=== PATIENT | female | born 2000 | race Caucasian/White ===

== ENCOUNTER 2019-03-10 15:32 | Emergency (ER) | payer OTHER ==
[~2019-03-10] VITALS: Ht 162.6 cm; Wt 88.2 kg
[2019-03-10 15:33] VITALS: BP 125/75
[2019-03-10 16:34] LABS: HEMATOCRIT 36.5 % (36.0-47.0); HEMOGLOBIN 11.9 g/dl (12.0-15.5); MEAN CORPUSCULAR HEMOGLOBIN 27.1 pg (27.0-33.0); MEAN CORPUSCULAR HGB CONC 32.6 g/dl (32.0-36.5); MEAN CORPUSCULAR VOLUME 83.1 fl (80.0-96.0); PLATELET COUNT, AUTOMATED 232 10^3/uL (150-450); RED BLOOD COUNT 4.39 10^6/uL (4.00-5.40); WHITE BLOOD COUNT 8.1 10^3/uL (4.0-10.0)
== END 2019-03-10 17:29 | disposition home or self-care (01) ==
LOC: M ED 15:32
DX: Z32.02 Encounter for pregnancy test, result negative (principal); N93.8 Other specified abnormal uterine and vaginal bleeding; R11.0 Nausea; F17.200 Nicotine dependence, unspecified, uncomplicated

== ENCOUNTER → 2019-05-30 | Outpatient (REF) | payer OTHER | LOC: M LAB REF 14:55 | PROVIDERS: ATTEND Physician Assistant | DX: J03.90 Acute tonsillitis, unspecified (principal) ==

== ENCOUNTER → 2019-07-07 | Outpatient (REF) | payer OTHER ==
[~2019-07-07] MED LIST: PREN1CHW6 PO
[2019-07-07 17:26] LABS: ALBUMIN 3.7 GM/DL (3.2-5.2); ALT/SGPT 17 U/L (12-78); BILIRUBIN,TOTAL 0.4 MG/DL (0.2-1.0); BLOOD UREA NITROGEN 12 MG/DL (7-18); CALCIUM LEVEL 8.9 MG/DL (8.5-10.1); CARBON DIOXIDE LEVEL 26 MEQ/L (21-32); CHLORIDE LEVEL 107 MEQ/L (98-107); CHOLESTEROL LEVEL 173 MG/DL (<200); CHOLESTEROL RISK RATIO 4.325 (<5); CREATININE FOR GFR 0.53 MG/DL (0.55-1.30); FREE T4 1.19 NG/DL (0.78-1.33); GLUCOSE, FASTING 83 MG/DL (70-100); HCG, SERUM QUANTITATIVE 786 MIU/ML; HDL CHOLESTEROL 40 MG/DL (>40); LDL CHOLESTEROL 116 MG/DL (<100); NON-HDL-C 133 MG/DL; POTASSIUM SERUM 4.1 MEQ/L (3.5-5.1); SODIUM LEVEL 139 MEQ/L (136-145); TOTAL PROTEIN 7.9 GM/DL (6.4-8.2); TRIGLYCERIDES LEVEL 86 MG/DL (<150)
[2019-07-07 17:27] LABS: BASO % 0.5 % (0.0-1.0); EOS # 0.2 10^3/uL (0.0-0.5); EOS % 2.2 % (0.0-3.0); HEMATOCRIT 39.6 % (36.0-47.0); HEMOGLOBIN 12.5 g/dl (12.0-15.5); LYMPH # 1.8 10^3/uL (1.5-5.0); LYMPH % 24.8 % (24.0-44.0); MEAN CORPUSCULAR HEMOGLOBIN 26.6 pg (27.0-33.0); MEAN CORPUSCULAR HGB CONC 31.6 g/dl (32.0-36.5); MEAN CORPUSCULAR VOLUME 84.3 fl (80.0-96.0); MONO # 0.6 10^3/uL (0.0-0.8); MONO % 8.5 % (0.0-5.0); NEUTROPHILS # 4.6 10^3/uL (1.5-8.5); NEUTROPHILS % 63.6 % (36.0-66.0); PLATELET COUNT, AUTOMATED 258 10^3/uL (150-450); TOTAL 25(OH) VITAMIN D 13.1 NG/ML (30.0-100.0); WHITE BLOOD COUNT 7.3 10^3/uL (4.0-10.0)
[2019-07-07 17:45] LABS: HEMOGLOBIN A1c 4.9 %
[2019-07-10 00:10] LABS: Lyme Disease IgG/IgM Antibodie <0.91 ISR (0.00-0.90); Lyme Disease IgM Ab Quantitati <0.80 index (0.00-0.79)
== END ==
LOC: M LAB REF 16:24
PROVIDERS: ATTEND Family Medicine
DX: Z32.01 Encounter for pregnancy test, result positive (principal); Z13.228 Encounter for screening for other metabolic disorders; M25.50 Pain in unspecified joint

== ENCOUNTER 2019-07-09 19:33 | Emergency (ER) | payer OTHER ==
[~2019-07-09] VITALS: Ht 160 cm; Wt 87.2 kg
[2019-07-09] MEDS ORDERED: PREN1CHW6 PO (19:40)
[2019-07-09 20:15] LABS: BASO # 0.1 10^3/uL (0.0-0.2); BASO % 0.5 % (0.0-1.0); EOS # 0.2 10^3/uL (0.0-0.5); EOS % 1.4 % (0.0-3.0); HEMATOCRIT 36.8 % (36.0-47.0); HEMOGLOBIN 12.1 g/dl (12.0-15.5); LYMPH # 2.1 10^3/uL (1.5-5.0); LYMPH % 19.9 % (24.0-44.0); MEAN CORPUSCULAR HEMOGLOBIN 27.1 pg (27.0-33.0); MEAN CORPUSCULAR HGB CONC 32.9 g/dl (32.0-36.5); MEAN CORPUSCULAR VOLUME 82.3 fl (80.0-96.0); MONO # 0.8 10^3/uL (0.0-0.8); MONO % 7.4 % (0.0-5.0); NEUTROPHILS # 7.3 10^3/uL (1.5-8.5); NEUTROPHILS % 70.4 % (36.0-66.0); PLATELET COUNT, AUTOMATED 269 10^3/uL (150-450); RED BLOOD COUNT 4.47 10^6/uL (4.00-5.40); WHITE BLOOD COUNT 10.4 10^3/uL (4.0-10.0)
[2019-07-09 20:59] LABS: ALBUMIN 3.7 GM/DL (3.2-5.2); ALT/SGPT 16 U/L (12-78); BILIRUBIN,DIRECT < 0.1 MG/DL (0.0-0.2); BILIRUBIN,TOTAL 0.1 MG/DL (0.2-1.0); HCG, SERUM QUANTITATIVE 2055 MIU/ML; LIPASE 108 U/L (73-393); TOTAL PROTEIN 7.7 GM/DL (6.4-8.2)
--- NOTE | 2019-07-09 22:07 | REPVR ---
PROCEDURE INFORMATION: Exam: US Duplex Artery or Vein of the Abdominal and/or Reproductive Organs, Limited Ovaries Exam date and time: 07/09/2019 9:05 PM Age: 19 years old Clinical indication: complicated by abdominal or pelvic pain; Lower; First trimester; Gestational age or lmp: 05/30/2019; ; Additional info: 5 wks with pelvic pain TECHNIQUE: Imaging protocol: Real-time duplex ultrasound scan of the arterial or venous flow with gardner scale, color Doppler flow and spectral waveform analysis with image documentation. Limited duplex exam focused on the ovaries. Duplex images required to evaluate for torsion and other vascular conditions. COMPARISON: No relevant prior studies available. FINDINGS: Right adnexa: Normal duplex ultrasound of the right ovary. No torsion. Left adnexa: The left ovary was not visualized due to obscuration by intestinal gas. IMPRESSION: Normal duplex of the right ovary. No evidence for right ovarian torsion. PROCEDURE INFORMATION: Exam: US First Trimester, Transabdominal and US , Transvaginal Exam date and time: 07/09/2019 9:05 PM Age: 19 years old Clinical indication: complicated by abdominal or pelvic pain; Lower; First trimester; Gestational age or lmp: 05/30/2019; ; Additional info: 5 wks with pelvic pain TECHNIQUE: Imaging protocol: Real-time transabdominal obstetrical ultrasound of the maternal pelvis and a first trimester , less than 14 weeks 0 days, with image documentation. Transvaginal imaging was used for better evaluation of the fetus and adnexa. COMPARISON: No relevant prior studies available. FINDINGS: Last menstrual period: 05/30/2019 GESTATION: Gestation: There is a cystic structure in the uterus, which is felt to represent a gestational sac. No pole or yolk sac is visualized. Heart rate: No cardiac activity is visualized. Placenta: No placenta is visualized. Amniotic fluid: Amniotic and coelomic fluid are unremarkable for gestational age. BIOMETRY: Estimated gestational age by US: 5 weeks 2 days Estimated gestational age by LMP: 5 weeks 5 days Mean sac diameter: 0.49 cm Estimated due date by US: 03/08/2020 Estimated due date by LMP: 03/05/2020 MATERNAL: Uterus: The anteverted uterus measures 8.9 cm x 4.2 cm x 6.6 cm. No myometrial mass is noted. Cervix: Unremarkable. Right adnexa: The right ovary measures 4.9 cm x 5 cm x 4.7 cm and contains a 4.6 cm x 4.9 cm x 4.4 cm cyst with simple characteristics. Blood flow is demonstrated to the right ovary. Left adnexa: The left ovary was not visualized due to obscuration by intestinal gas. Intraperitoneal: No intraperitoneal free fluid. IMPRESSION: 1. Evidence for an intrauterine gestational sac with a mean sac diameter of 0.49 cm corresponding to an estimated gestational age of 5 weeks 2 days and estimated due date on 03/08/2020. No embryo identified, which may be secondary to the early nature of the gestation versus an anembryonic . A follow-up ultrasound is suggested in 2 weeks or as clinically indicated along with serial serum beta HCG levels to re-evaluate the . 2. 4.6 cm x 4.9 cm x 4.4 cm cyst with simple characteristics in the right ovary, which can be re-evaluated at the time of the follow-up ultrasound. Electronically signed by: Yonis Jordan On 07/09/2019 22:09:03 PM
[2019-07-09 22:12] VITALS: BP 103/62
== END 2019-07-09 22:36 | disposition home or self-care (01) ==
LOC: M ED 19:33
DX: O26.891 Other specified pregnancy related conditions, first trimester (principal); R10.2 Pelvic and perineal pain; O99.331 Smoking (tobacco) complicating pregnancy, first trimester; O34.81 Maternal care for other abnormalities of pelvic organs, first trimester; N83.291 Other ovarian cyst, right side; Z3A.01 Less than 8 weeks gestation of pregnancy; Z79.899 Other long term (current) drug therapy

== ENCOUNTER 2019-08-13 03:19 | Emergency (ER) | payer OTHER ==
[~2019-08-13] VITALS: Ht 162.6 cm; Wt 86.4 kg
[2019-08-13 05:17] LABS: BASO % 0.4 % (0.0-1.0); EOS # 0.1 10^3/uL (0.0-0.5); EOS % 0.8 % (0.0-3.0); HEMATOCRIT 31.6 % (36.0-47.0); HEMOGLOBIN 10.5 g/dl (12.0-15.5); LYMPH # 1.7 10^3/uL (1.5-5.0); MEAN CORPUSCULAR HEMOGLOBIN 27.3 pg (27.0-33.0); MEAN CORPUSCULAR HGB CONC 33.2 g/dl (32.0-36.5); MEAN CORPUSCULAR VOLUME 82.3 fl (80.0-96.0); MONO # 0.8 10^3/uL (0.0-0.8); MONO % 7.4 % (0.0-5.0); NEUTROPHILS # 8.6 10^3/uL (1.5-8.5); PLATELET COUNT, AUTOMATED 191 10^3/uL (150-450); RED BLOOD COUNT 3.84 10^6/uL (4.00-5.40); WHITE BLOOD COUNT 11.3 10^3/uL (4.0-10.0)
[2019-08-13 05:38] LABS: ALBUMIN 3.1 GM/DL (3.2-5.2); ALT/SGPT 24 U/L (12-78); BILIRUBIN,DIRECT < 0.1 MG/DL (0.0-0.2); BILIRUBIN,TOTAL 0.2 MG/DL (0.2-1.0); LIPASE 50 U/L (73-393); TOTAL PROTEIN 6.9 GM/DL (6.4-8.2)
[2019-08-13] MEDS ORDERED: ACETAMINOPHEN TAB 650MG DOSE (2X325MG) PO ONE (06:00)
[2019-08-13 06:24] LABS: HCG, SERUM QUANTITATIVE 40190 MIU/ML
[2019-08-13 07:21] VITALS: BP 109/64
--- NOTE | 2019-08-13 07:37 | REPVR ---
PROCEDURE INFORMATION: Exam: US First Trimester, Transabdominal Exam date and time: 08/13/2019 6:15 AM Age: 19 years old Clinical indication: complicated by abdominal or pelvic pain; Lower; First trimester; Gestational age or lmp: 10w 0d; ; Additional info: B/l flank, pelvic pain, 10 weeks TECHNIQUE: Imaging protocol: Real-time transabdominal obstetrical ultrasound of the maternal pelvis and a first trimester , less than 14 weeks 0 days, with image documentation. COMPARISON: US OB 07/09/2019 9:06 PM FINDINGS: GESTATION: Gestation: Intrauterine gestation. Yolk sac is unremarkable. Heart rate: 169 bpm Placenta: Unremarkable. No subchorionic bleed. Amniotic fluid: Amniotic and coelomic fluid are normal for gestational age. BIOMETRY: Estimated gestational age: 10 weeks and 0 days based on CRL of 3.1 cm. ARNAV 03/10/2020. MATERNAL: Uterus: Unremarkable. Cervix: Unremarkable. Right adnexa: 5.5 cm anechoic well-defined simple cyst is noted in the right adnexal region. Left adnexa: Unremarkable. Intraperitoneal: No intraperitoneal free fluid. IMPRESSION: Single live intrauterine gestation corresponding to 10 weeks and 0 days. No subchorionic hemorrhage is seen. Follow-up ultrasound at 20 weeks of gestation is recommended for anatomy survey. 5.5 cm anechoic well-defined simple cyst is noted in the right adnexal region. Electronically signed by: Reynold Byrnes On 08/13/2019 07:37:01 AM
== END 2019-08-13 07:23 | disposition home or self-care (01) ==
LOC: M ED 03:19
DX: O26.891 Other specified pregnancy related conditions, first trimester (principal); R10.9 Unspecified abdominal pain; M54.5 Low back pain; O34.81 Maternal care for other abnormalities of pelvic organs, first trimester; N83.8 Other noninflammatory disorders of ovary, fallopian tube and broad ligament; Z3A.10 10 weeks gestation of pregnancy; Z79.899 Other long term (current) drug therapy

== ENCOUNTER 2020-07-20 21:53 | Emergency (ER) | payer MEDICAID, OTHER ==
[~2020-07-20] VITALS: Ht 162.6 cm; Wt 94.5 kg
[2020-07-20 21:54] VITALS: BP 122/64
--- OUTSIDE RECORDS SUMMARY | 2020-07-20 21:59 | CCD ---
Author Author [facility] Organization [facility] Address Unknown Phone Unavailable Care Team Providers Care Manufacturers Service Representative Name Role Phone Romana JAMES MD Unavailable Unavailable Romana JAMES MD Unavailable Unavailable JACOBRomana Dowling MD Unavailable Unavailable JACOBRomana Dowling MD Unavailable Unavailable JACOBRomana Dowling MD Unavailable Unavailable JACOBRomana Dowling MD Unavailable Unavailable JACOBRomana Dowling MD Unavailable Unavailable JACOBRomana Dowling MD Unavailable Unavailable JACOBRomana Dowling MD Unavailable Unavailable JACOBRomana Dowling MD Unavailable Unavailable JACOBRomana Dowling MD Unavailable Unavailable JACOBRomana Dowling MD Unavailable Unavailable JACOBRomana Dowling MD Unavailable Unavailable JACOBRomana Dowling MD Unavailable Unavailable Romana JAMES MD Unavailable Unavailable JACOBRomana Dowling MD Unavailable Unavailable JACOBRomana Dowling MD Unavailable Unavailable JACOBRomana Dowling MD Unavailable Unavailable JACOBRomana Dowling MD Unavailable Unavailable JACOBRomana Dowling MD Unavailable Unavailable JACOBRomana Dowling MD Unavailable Unavailable JACOBRomana Dowling MD Unavailable Unavailable JACOBRomana Dowling MD Unavailable Unavailable JACOBRomana Dowling MD Unavailable Unavailable JACOBRomana MD Unavailable Unavailable JACOBRomana Dowling MD Unavailable Unavailable JACOB, F HERVE MD Unavailable Unavailable Romana JAMES MD Unavailable Unavailable Pacheco SIMS MD Unavailable Unavailable Pacheco SIMS MD Unavailable Unavailable Pacheco SIMS MD Unavailable Unavailable Pacheco SIMS MD Unavailable Unavailable Pacheco SIMS MD Unavailable Unavailable Pacheco SIMS MD Unavailable Unavailable Pacheco SIMS MD Unavailable Unavailable Pacheco SIMS MD Unavailable Unavailable Pacheco SIMS MD Unavailable Unavailable Pacheco SIMS MD Unavailable Unavailable Pacheco SIMS MD Unavailable Unavailable Pacheco SIMS MD Unavailable Unavailable Pacheco SIMS MD Unavailable Unavailable Pacheco SIMS MD Unavailable Unavailable Pacheco SIMS MD Unavailable Unavailable Pacheco SIMS MD Unavailable Unavailable Pacheco SIMS MD Unavailable Unavailable Pacheco SIMS MD Unavailable Unavailable Pacheco SIMS MD Unavailable Unavailable Pacheco SIMS MD Unavailable Unavailable Pacheco SIMS MD Unavailable Unavailable Pacheco SIMS MD Unavailable Unavailable Pacheco SIMS MD Unavailable Unavailable Pacheco SIMS MD Unavailable Unavailable Pacheco SIMS MD Unavailable Unavailable Pacheco SIMS MD Unavailable Unavailable Pacheco SIMS MD Unavailable Unavailable Koko CHAN MD Unavailable Unavailable Koko CHAN MD Unavailable Unavailable Koko CHAN MD Unavailable Unavailable Koko CHAN MD Unavailable Unavailable Koko CHAN MD Unavailable Unavailable Koko CHAN MD Unavailable Unavailable Koko CHAN MD Unavailable Unavailable Koko CHAN MD Unavailable Unavailable Koko CHAN MD Unavailable Unavailable Koko CHAN MD Unavailable Unavailable Koko CHAN MD Unavailable Unavailable Koko CHAN MD Unavailable Unavailable Koko CHAN MD Unavailable Unavailable Koko CHAN MD Unavailable Unavailable Koko CHAN MD Unavailable Unavailable Koko CHAN MD Unavailable Unavailable Koko CHAN MD Unavailable Unavailable Koko CHAN MD Unavailable Unavailable Koko CHAN MD Unavailable Unavailable Koko CHAN MD Unavailable Unavailable Koko CHAN MD Unavailable Unavailable Koko CHAN MD Unavailable Unavailable Koko CHAN MD Unavailable Unavailable Koko CHAN MD Unavailable Unavailable Koko CHAN MD Unavailable Unavailable Koko CHAN MD Unavailable Unavailable Koko CHAN MD Unavailable Unavailable Koko CHAN MD Unavailable Unavailable Koko CHAN MD Unavailable Unavailable Koko CHAN MD Unavailable Unavailable Koko CHAN MD Unavailable Unavailable Koko CHAN MD Unavailable Unavailable Koko CHAN MD Unavailable Unavailable Koko CHAN MD Unavailable Unavailable SUZETTEKoko GARCIA MD Unavailable Unavailable Koko CHAN MD Unavailable Unavailable Koko CHAN MD Unavailable Unavailable Koko CHAN MD Unavailable Unavailable Koko CHAN MD Unavailable Unavailable Koko CHAN MD Unavailable Unavailable Koko CHAN MD Unavailable Unavailable Koko CHAN MD Unavailable Unavailable Koko CHAN MD Unavailable Unavailable Koko CHAN MD Unavailable Unavailable Koko CHAN MD Unavailable Unavailable Koko CHAN MD Unavailable Unavailable Koko CHAN MD Unavailable Unavailable Koko CHAN MD Unavailable Unavailable Koko CHAN MD Unavailable Unavailable Koko CHAN MD Unavailable Unavailable Koko CHAN MD Unavailable Unavailable Koko CHAN MD Unavailable Unavailable Koko CHAN MD Unavailable Unavailable Koko CHAN MD Unavailable Unavailable Koko CHAN MD Unavailable Unavailable Koko CHAN MD Unavailable Unavailable Koko CHAN MD Unavailable Unavailable Koko CHAN MD Unavailable Unavailable Koko CHAN MD Unavailable Unavailable Koko CHAN MD Unavailable Unavailable Koko CHAN MD Unavailable Unavailable Koko CHAN MD Unavailable Unavailable Koko CHAN MD Unavailable Unavailable Koko CHAN MD Unavailable Unavailable Koko CHAN MD Unavailable Unavailable Koko CHAN MD Unavailable Unavailable Koko CHAN MD Unavailable Unavailable Koko CHAN MD Unavailable Unavailable Koko CHAN MD Unavailable Unavailable Koko CHAN MD Unavailable Unavailable Koko CHAN MD Unavailable Unavailable Koko CHAN MD Unavailable Unavailable Koko CHAN MD Unavailable Unavailable Koko CHAN MD Unavailable Unavailable Koko CHAN MD Unavailable Unavailable Koko CHAN MD Unavailable Unavailable SUZETTE, Koko MUKHERJEE MD Unavailable Unavailable SUZETTE, Koko MUKHERJEE MD Unavailable Unavailable SUZETTE, Koko MUKHERJEE MD Unavailable Unavailable SUZETTE, Koko MUKHERJEE MD Unavailable Unavailable SUZETTE, Koko MUKHERJEE MD Unavailable Unavailable SUZETTE, Koko MUKHERJEE MD Unavailable Unavailable SUZETTE, Koko MUKHERJEE MD Unavailable Unavailable RING, K LAURA PA Unavailable Unavailable RING, K LAURA PA Unavailable Unavailable RING, K LAURA PA Unavailable Unavailable RING, K LAURA PA Unavailable Unavailable RING, K LAURA PA Unavailable Unavailable RING, K LAURA PA Unavailable Unavailable RING, K LAURA PA Unavailable Unavailable RING, K LAURA PA Unavailable Unavailable RING, K LAURA PA Unavailable Unavailable RING, K LAURA PA Unavailable Unavailable RING, K LAURA PA Unavailable Unavailable RING, K LAURA PA Unavailable Unavailable RING, K LAURA PA Unavailable Unavailable RING, K LAURA PA Unavailable Unavailable RING, K LAURA PA Unavailable Unavailable RING, K LAURA PA Unavailable Unavailable RING, K LAURA PA Unavailable Unavailable RING, K LAURA PA Unavailable Unavailable RING, K LAURA PA Unavailable Unavailable RING, K LAURA PA Unavailable Unavailable RING, K LAURA PA Unavailable Unavailable Beto, L Mathew CNM Unavailable Unavailable Beto, L Mathew CNM Unavailable Unavailable Beto, L Mathew CNM Unavailable Unavailable Beto, L Mathew CNM Unavailable Unavailable Beto, L Mathew CNM Unavailable Unavailable Beto, L Mathew CNM Unavailable Unavailable Beto, L Mathew CNM Unavailable Unavailable Beto, L Mathew CNM Unavailable Unavailable Beto, L Mathew CNM Unavailable Unavailable Beto, L Mathew CNM Unavailable Unavailable Beto, L Mathew CNM Unavailable Unavailable Beto, L Mathew CNM Unavailable Unavailable Beto, L Mathew CNM Unavailable Unavailable Beto, L Mathew CNM Unavailable Unavailable Beto, L Mathew CNM Unavailable Unavailable Beto, L Mathew CNM Unavailable Unavailable Beto, L Mathew CNM Unavailable Unavailable Beto, L Mathew CNM Unavailable Unavailable Beto, L Mathew CNM Unavailable Unavailable Beto, L Mathew CNM Unavailable Unavailable Beto, L Mathew CNM Unavailable Unavailable Beto, L Mathew CNM Unavailable Unavailable Beto, L Mathew CNM Unavailable Unavailable Bteo, L Mathew CNM Unavailable Unavailable Beto, L Mathew CNM Unavailable Unavailable Beto, L Mathew CNM Unavailable Unavailable Beto, L Mathew CNM Unavailable Unavailable Beto, L Mathew CNM Unavailable Unavailable Re-disclosure Warning The records that you are about to access may contain information from federally-assisted alcohol or drug abuse programs. If such information is present, then the following federally mandated warning applies: This information has been disclosed to you from records protected by federal confidentiality rules (42 CFR part 2). The federal rules prohibit you from making any further disclosure of this information unless further disclosure is expressly permitted by the written consent of the person to whom it pertains or as otherwise permitted by 42 CFR part 2. A general authorization for the release of medical or other information is NOT sufficient for this purpose. The Federal rules restrict any use of the information to criminally investigate or prosecute any alcohol or drug abuse patient.The records that you are about to access may contain highly sensitive health information, the redisclosure of which is protected by Article 27-F of the [facility] Public Health law. If you continue you may have access to information: Regarding HIV / AIDS; Provided by facilities licensed or operated by the [facility] Office of Mental Health; or Provided by the [facility] Office for People With Developmental Disabilities. If such information is present, then the following [facility] mandated warning applies: This information has been disclosed to you from confidential records which are protected by state law. State law prohibits you from making any further disclosure of this information without the specific written consent of the person to whom it pertains, or as otherwise permitted by law. Any unauthorized further disclosure in violation of state law may result in a fine or long-term sentence or both. A general authorization for the release of medical or other information is NOT sufficient authorization for further disc losure. Allergies and Adverse Reactions Type Description Substance Reaction Status Data Source(s ) No Known Allergies No Known Allergies [facility] Encounters Encounter Providers Location Date Indications Data Source(s ) [facility] 03/04/2020 11:05:00 PM EDT - 03/07/2020 01:20:00 PM EDT [facility] Patient discharged. Outpatient Referrer: Mathew Pérez CNM 11/21/2019 03:08:00 P M EDT [facility] Outpatient Referrer: Mathew Pérez CNM 11/21/2019 03:08:00 P M EDT [facility] Outpatient Referrer: Mathew THOMSON 11/21/2019 03:05:00 P M EDT [facility] Outpatient Referrer: Mathew THOMSON 11/21/2019 03:03:00 P M EDT [facility] Outpatient Referrer: Mathew THOMSON 11/10/2019 03:39:00 P M EDT [facility] Outpatient 11/10/2019 03:37:[address] [facility] Outpatient Attender: RONNIE SIMS MD 01:27:00 PM EDT - 10/18/2019 01:27:00 PM EDT [facility] Outpatient Attender: LONNY CHAN MD 10/17/2019 04:59:01 P M EDT [facility] Outpatient Attender: Mathew Pérez CNMAttender: HERVE Dowling MD 09/20/2019 01:33:00 PM EDT - 09/20/2019 01:33:00 PM EDT [facility] Outpatient Attender: Mathew THOMSON 2019 12:49:00 PM EDT - 08/23/2019 12:49:00 PM EDT [facility] Outpatient 08/23/2019 09:55:[address] [facility] Outpatient 07/19/2019 03:19:[address] [facility] Outpatient Attender: LONNY CHAN MD 07/19/2019 01:29:[address] [facility] Outpatient Attender: LONNY CHAN MD 07/19/2019 01:29:[address] [facility] Outpatient Attender: LONNY CHAN MD 07/12/2019 10:43:[address] [facility] Outpatient Attender: LONNY CHAN MD 07/08/2019 03:42:[address] [facility] Outpatient Attender: LONNY CHAN MD 07/08/2019 11:46:[address] [facility] Outpatient Attender: LONNY CHAN MD 07/07/2019 03:09:[address] [facility] Outpatient Attender: LONNY CHAN MD 07/07/2019 03:09:[address] [facility] Outpatient Attender: LONNY CHAN MD 07/07/2019 11:20:[address] [facility] Outpatient Attender: LONNY CHAN MD 07/06/2019 02:56:00 P [facility] Outpatient Attender: LONNY CHAN MD 07/06/2019 01:04:[address] [facility] Outpatient Attender: LONNY CHAN MD 07/06/2019 12:35:[address] [facility] Outpatient Attender: LONNY CHAN MD 07/06/2019 12:34:[address] [facility] Outpatient Attender: LONNY CHAN MD 07/06/2019 11:52:[address] [facility] Outpatient Attender: LONNY CHAN MD 06/06/2019 06:00:[address] [facility] Outpatient Attender: LONNY CHAN MD 06/06/2019 05:59:[address] [facility] Outpatient Attender: LONNY CHAN MD 06/03/2019 05:20:[address] [facility] Outpatient Attender: LONNY CHAN MD 06/03/2019 05:19:[address] [facility] Outpatient Attender: LONNY CHAN MD 06/03/2019 03:54:[address] [facility] Outpatient Attender: LONNY CHAN MD 06/03/2019 03:27:[address] [facility] Outpatient Attender: LONNY CHAN MD 06/03/2019 03:25:[address] [facility] Outpatient Attender: LONNY CHAN MD 05/31/2019 09:16:[address] [facility] Outpatient Attender: LONNY CHAN MD 05/31/2019 09:14:[address] [facility] Outpatient Attender: LONNY CHAN MD 05/31/2019 09:13:[address] [facility] Outpatient Attender: LONNY CHAN MD 05/30/2019 01:45:[address] [facility] Outpatient Attender: LAURA Bentley [facility] 05/30/2019 11:00:00 AM EST [facility] ([facility], [facility]) Emergency 11/27/2018 02:57:51 PM EDT - 11/27/2018 05:26:00 PM EDT chest tightness, [facility] chest tightness, Medications Medication Brand Name Start Date Product Form Dose Route Admi nistrative Instructions Pharmacy Instructions Status Indications Reaction Description Data Source(s) 0.25-35 mg-mcg 07/03/2020 12:00:00 AM EST tablet 28 TAKE ONE TABLET BY MOUTH EVERY DAY TAKE ONE TABLET BY MOUTH EVERY DAY SOLD: 07/03/2020 [facility] 0.25-35 mg-mcg 06/06/2020 12:00:00 AM EST tablet 28 TAKE ONE TABLET BY MOUTH ONCE DAILY TAKE ONE TABLET BY MOUTH ONCE DAILY SOLD: 06/06/2020 [facility] Azithromycin 16.7 MG/ML Oral Suspension [Zithromax] Zithroma x 09/06/2019 12:00:00 AM EDT completed [facility] ([facility]) Insurance Providers Payer name Policy type / Coverage type Policy ID Covered republican ID Covered republican's relationship to panchal Policy Panchal Plan Information [facility] COMMUNITY PLAN [facility] [id number] SP [id number] [facility] COMMUNITY PLAN XIX -I/P [id number] 18 [id number] [facility] COMMUNITY PLAN XIX [id number] MEDICAID -O/P EMERGENCY ROOM [id number] [employer](MCAID) O [id number] S [id number] [facility] COMMUNTY PLAN [id number] United Healthcare Essential Plan P [id number] S [id number] [facility] [id number] 18 [id number] [facility] COMMUNITY PLAN [facility] [id number] SP [id number] United [employer] Essential Plan P [id number] S [id number] United [employer] Essential Plan P [id number] S [id number] Self Pay P UNAVAILABLE S [place] BLE [place] [facility] ESSENTIALS PLUS 1 & 2 [id number] [employer]ARE [id number] SP [id number] UNITED HE[employer]ARE [id number] [facility] Commerical [id number] UNITED HE[employer]CARE [id number] [facility] HE[facility] PLAN O [id number] 01 [id number] SELF PAY Self Pay [id number] CHILD HEALTH PLUS Medicaid [id number] Problems, Conditions, and Diagnoses Code Display Name Description Problem Type Effective Dates Data Source(s) V72.42 - blood test confirms - blood test c onfirms 07/08/2019 11:45:02 AM [facility] V22.2 Urine test positive Urine test pos itive 07/06/2019 01:03:44 PM [facility] J35.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, unspecified Chronic disease of tonsils AND/OR adenoids 06/06/2019 05:58:09 AM [facility] 620.2 Unspecified ovarian cyst, unspecified si de Unspecified ovarian cyst, unspecified side 06/06/2019 05:58:09 AM [facility] [id number] Unspecified asthma with status asthmatic us Unspecified asthma with status asthmaticus 06/06/2019 05:58:09 AM [facility] F17.200 Nicotine dependence, unspecified, uncomplicated Nicoti ne dependence 06/06/2019 05:58:09 AM [facility] E55.9 Vitamin D deficiency, unspecified Vitamin D deficiency , unspecified 06/06/2019 05:58:09 AM [facility] [id number] Pain in unspecified joint Pain in unspecified joint 06/06/2019 05:58:09 AM [facility] Z13.228 Encounter for screening for other metabo lic disorders Encounter for screening for other metabolic disorders 06/06/2019 05:58:09 AM [facility] [id number] Attention-deficit hyperactivity disorder , unspecified type Attention- deficit hyperactivity disorder, unspecified type 06/06/2019 05:58:09 AM [facility] F41.9 Anxiety disorder, unspecified Anxiety disorder, unspec ified 06/06/2019 05:58:09 AM [facility] O770 Labor and delivery complicated by meconi um in amniotic fluid Labor and delivery complicated by meconium in amniotic fluid [facility] of 40 weeks gestation of Diagnosis 03/04/2020 11:05:00 PM EDT [facility] E669 Obesity, unspecified Obesity, unspecified Diagnosis [id number] Obesity complicating childbirth Obesity complica ting childbirth Diagnosis 03/04/2020 11:05:00 PM [facility] F419 Anxiety disorder, unspecified Anxiety disorder, unspec ified Diagnosis 03/04/2020 11:05:00 PM [facility] O639 Long labor, unspecified Long labor, unspecified Diagno sis 03/04/2020 11:05:00 PM [facility] Z370 Single live Single live Diagnosis 03/04/2020 11:05:00 PM [facility] [id number] Other mental disorders complicating chil dbirth Other mental disorders complicating childbirth Diagnosis 03/04/2020 11:05:00 PM [facility] [id number] Other mental disorders complicating preg nelda, third trimester Other mental disorders complicating , third trimester Diagnosis 03/04/2020 11:05:00 PM [facility] Z3A20 20 weeks gestation of 20 weeks gestation of Diagnosis 10/18/2019 01:27:00 PM [facility] Z3402 Encounter for supervision of normal firs t , second trimester Encounter for supervision of normal first , second trimester Diagnosis 10/18/2019 01:27:00 PM [facility] Z3A16 16 weeks gestation of 16 weeks gestation of Diagnosis 09/20/2019 01:33:00 PM [facility] Z3482 Encounter for supervision of other mary beth l , second trimester Encounter for supervision of other normal , second trimester Diagnosis 09/20/2019 01:33:00 PM [facility] Z3A12 12 weeks gestation of 12 weeks gestation of Diagnosis 08/23/2019 12:49:00 PM [facility] Z3481 Encounter for supervision of other mary beth l , first trimester Encounter for supervision of other normal , first trimester Diagnosis 08/23/2019 12:49:00 PM [facility] Surgeries/Procedures Procedure Description Date Indications Data Source(s) Introduction of Anesthetic Agent into Spinal Canal, Pe rcutaneous Approach Introduction of Anesthetic Agent into Spinal Canal, Percutaneous Approac 03/05/2020 12:00:00 AM [facility] Delivery of Products of Conception, External Approach Delivery of Products of Conception, External Approach 03/05/2020 12:00:00 AM [facility] Introduction of Electrolytic and Water B alance Substance into Peripheral Vein, Percutaneous Approach Introduction of Electrolytic and Water B alance Substance into Peripheral Vein, Percutaneous Approach 03/04/2020 12:00:00 AM EDT [facility] Monitoring of Products of Conception, Ca rdiac Electrical Activity, External Approach Monitoring of Products of Conception, Ca rdiac Electrical Activity, External Approach 03/04/2020 12:00:00 AM EDT [facility] Antepartum New Patient Initial Visit 08/23/2019 12:00: 00 AM EDT [facility] ([facility]) Results ID Date Data Source [id number] 03/06/2020 07:20:00 AM T [facility] Name Value Range Interpretation Code Description Data Ashley rce(s) Supporting Document(s) CBC W/AUTOMATED DIFF [facility] COMPLETE BLOOD COUNT Leukocytes [#/volume] in Blood by Automated count 11.7 10^3/uL 4.2 - 11.0 H [facility] Erythrocytes [#/volume] in Blood by Automated count 4.04 10^6/uL 4. 20 - 5.40 L [facility] Hemoglobin [Mass/volume] in Blood 11.0 g/dL 12.0 - 16.0 L [facility] Hematocrit [Volume Fraction] of Blood by Automated count 33.2 % 3 7.0 - 47.0 L [facility] Erythrocyte mean corpuscular volume [Entitic volume] by Auto mated count 82.2 fL 81.0 - 101 [facility] Erythrocyte mean corpuscular hemoglobin [Entitic mass] by Automated count 27.2 pg 27.0 - 34.0 [facility] Erythrocyte mean corpuscular hemoglobin concentration [Mass/volume] by Automated count 33.1 g/dL 31.0 - 36.0 [facility] Erythrocyte distribution width [Ratio] by Automated count 14.0 % 11.5 - 14.5 [facility] Platelets [#/volume] in Blood by Automated count 174 10^3/uL 150 - 45 0 [facility] Platelet mean volume [Entitic volume] in Blood by Automated count 9.1 fL 7.4 - 10.4 [facility] Neutrophils/100 leukocytes in Blood by Automated count 72.2 % 37. 0 - 80.0 [facility] Lymphocytes/100 leukocytes in Blood by Manual count 17.0 % 25.0 - 40.0 L [facility] Monocytes/100 leukocytes in Blood by Automated count 9.8 % 3.0 - 8.0 H [facility] Eosinophils/100 leukocytes in Blood by Automated count 0.5 % 0.0 - 7.0 [facility] Basophils/100 leukocytes in Blood by Automated count 0.2 % 0.0 - 2.5 [facility] %IG 0.3 % 0.0 - 0.0 H [facility] Hospit al %NRBC 0.0 % 0.0 - 0.[address] [facility] al Neutrophils [#/volume] in Blood by Automated count 8.43 10^3/uL 2.00 - 6.90 H [facility] Lymphocytes [#/volume] in Blood by Automated count 1.98 10^3/uL 0.60 - 3.40 [facility] Monocytes [#/volume] in Blood by Automated count 1.14 10^3/uL 0.00 - 0.90 H [facility] Eosinophils [#/volume] in Blood by Automated count 0.06 10^3/uL 0.00 - 0.70 [facility] Basophils [#/volume] in Blood by Automated count 0.02 10^3/uL 0.00 - 0.20 [facility] #IG 0.04 10^3/uL 0.00 - 0.10 [facility] H ospital #NRBC 0.00 10^3/uL 0.00 - 0.00 [facility]ital MANUAL DIFF SEE BELOW [facility] ital Segmented neutrophils/100 leukocytes in Blood by Manual count 77 % 37 - 80 [facility] %LYMPH 17 % 25 - 40 L [facility] %MONO 6 % 3 - 8 [facility]PH NOT INDICATED [facility] spital ID Date Data Source [id number] 03/08/2020 03:32:00 PM EDT [facility] Name Value Range Interpretation Code Description Data Ashley rce(s) Supporting Document(s) CULTURE URINE [facility] spital _CULTURE URINE_$$[id number]$$[id number]$$[id number]$$[id number]$$[id number]$$[id number]$$[id number]$$[id number]$$[id number]$$ [id number]$$[id number]$$[id number]$$[id number]$$[id number]$$[id number]$$[id number]$$[id number]$$[id number]$$[id number]$$ [id number]$$[id number]$$[id number]$$[id number]$$[id number]$$[id number]$$[id number]$$[id number] -- Continued on next page --Patient: MIGUEL GODDARD N Order: [id number] Page 2Culture: CULTURE URINE Status: Final ==== -- Continued on next page --Patient: MIGUEL GODDARD N Order: [id number] Page 2Culture: CULTURE URINE Status: Prelim =====$$[id number]$$[id number] DATE/TIME: 03/08/2020 15:06Culture: CULTURE URINE Status: FinalUrine Culture,Comprehensive: Q0Ylaej urogenital flora10,000-25,000 colony forming units per mL Previous result entered on 03/07/2020 03:30 ET Specimen has been received and testing has been initiated.P1 Test performed by: [facility] Neal ROWLAND #: [id number] [address] [place] [address] [id number] [facility] [id number] Director : Favian Pfeiffer MD NPI #:Pharmacist Per Diem : 03/07/20.0620.XMT.SENT REF 03/08/20.1532.XMT.SENT REF 03/08/20.1532.DW .to PARUL via fax ID Date Data Source [id number] 03/07/2020 06:11:00 AM EDT [facility] Name Value Range Interpretation Code Description Data Ashley rce(s) Supporting Document(s) SOURCE: Clean Catch [facility] ital Chlamydia trachomatis rRNA [Presence] in Unspecified specimen by Probe and target amplification method Negative Negative [facility] Neisseria gonorrhoeae rRNA [Presence] in Unspecified specimen by Probe and target amplification method Negative Negative [facility] ID Date Data Source [id number] 03/05/2020 01:13:00 AM EDT [facility] Name Value Range Interpretation Code Description Data Sahley rce(s) Supporting Document(s) ABO group [Type] in Blood A [facility] Rh [Type] in Blood POSITIVE [facility] AB SCREEN NEGATIVE NORMAL: NEGATIVE [facility] { ABO/RH REENTER A POSITIVE{ AB SCREEN RE-ENTER NEGATIVE ID Date Data Source [id number] 03/05/2020 12:28:00 AM EDT [facility] Name Value Range Interpretation Code Description Data Ashley rce(s) Supporting Document(s) CBC W/AUTOMATED DIFF [facility] COMPLETE BLOOD COUNT Leukocytes [#/volume] in Blood by Automated count 11.8 10^3/uL 4.2 - 11.0 H [facility] Erythrocytes [#/volume] in Blood by Automated count 4.77 10^6/uL 4. 20 - 5.40 [facility] Hemoglobin [Mass/volume] in Blood 13.0 g/dL 12.0 - 16.0 [facility] Hematocrit [Volume Fraction] of Blood by Automated count 38.3 % 3 7.0 - 47.0 [facility] Erythrocyte mean corpuscular volume [Entitic volume] by Auto mated count 80.3 fL 81.0 - 101 L [facility] Erythrocyte mean corpuscular hemoglobin [Entitic mass] by Automated count 27.3 pg 27.0 - 34.0 [facility] Erythrocyte mean corpuscular hemoglobin concentration [Mass/volume] by Automated count 33.9 g/dL 31.0 - 36.0 [facility] Erythrocyte distribution width [Ratio] by Automated count 13.5 % 11.5 - 14.5 [facility] Platelets [#/volume] in Blood by Automated count 227 10^3/uL 150 - 45 0 [facility] Platelet mean volume [Entitic volume] in Blood by Automated count 9.9 fL 7.4 - 10.4 [facility] Neutrophils/100 leukocytes in Blood by Automated count 82.9 % 37. 0 - 80.0 H [facility] Lymphocytes/100 leukocytes in Blood by Manual count 10.7 % 25.0 - 40.0 L [facility] Monocytes/100 leukocytes in Blood by Automated count 5.7 % 3.0 - 8.0 [facility] Eosinophils/100 leukocytes in Blood by Automated count 0.1 % 0.0 - 7.0 [facility] Basophils/100 leukocytes in Blood by Automated count 0.2 % 0.0 - 2.5 [facility] %IG 0.4 % 0.0 - 0.0 [facility] %NRBC 0.0 % 0.0 - 0.[address] [facility] al Neutrophils [#/volume] in Blood by Automated count 9.77 10^3/uL 2.00 - 6.90 H [facility] Lymphocytes [#/volume] in Blood by Automated count 1.26 10^3/uL 0.60 - 3.40 [facility] Monocytes [#/volume] in Blood by Automated count 0.67 10^3/uL 0.00 - 0.90 [facility] Eosinophils [#/volume] in Blood by Automated count 0.01 10^3/uL 0.00 - 0.70 [facility] Basophils [#/volume] in Blood by Automated count 0.02 10^3/uL 0.00 - 0.20 [facility] #IG 0.05 10^3/uL 0.00 - 0.10 [facility] #NRBC 0.00 10^3/uL 0.00 - 0.00 [facility] MANUAL DIFF NOT INDICATED [facility] RBC MORPH NOT INDICATED [facility] spital ID Date Data Source [id number] 03/05/2020 12:27:00 AM EDT [facility] Name Value Range Interpretation Code Description Data Ashley rce(s) Supporting Document(s) BASIC METABOLIC PANEL [facility] BASIC METABOLIC PANEL Sodium [Moles/volume] in Serum or Plasma 136 mEq/L 134 - 153 [facility] Potassium [Moles/volume] in Serum or Plasma 4.1 mEq/L 3.6 - 5.0 [facility] Chloride [Moles/volume] in Serum or Plasma 101 mEq/L 98 - 107 [facility] Carbon dioxide, total [Moles/volume] in Serum or Plasma 18 MEQ/L 22 - 30 L [facility] Glucose [Mass/volume] in Serum or Plasma 97 MG/DL 65 - 110 [facility] BUN 10 MG/DL 7 - [address] [facility] al Creatinine [Mass/volume] in Serum or Plasma 0.5 MG/DL 0.7 - 1.5 L [facility] BUN/CREAT 20 8 - 27 [facility] Calcium [Mass/volume] in Serum or Plasma 9.5 MG/DL 8.4 - 10.2 [facility] Anion gap 3 in Serum or Plasma 17.0 mmol/L 8.0 - 16.0 H [facility] AGE [address] [facility] al AFR AMER GFR >60 mL/min [facility] spital NON-AA GFR >60 mL/min [facility] ital Male GFR Inter prentation 20-49 yrs >60 mL/min Normal 50-59 yrs >56 mL/min Normal 60-69 yrs >49 mL/min Normal 70-79yrs >42 mL/min Normal 80 and above >35 mL/min Normal Female GFR Interpretation 20-39 yrs >60 mL/min Normal 40-49 yrs >58 mL/min Normal 50-59 yrs >51 mL/min Normal 60-69 yrs >45 mL/min Normal 70-79 yrs >39 mL/min Normal 80 and above >32 mL/min Normal ID Date Data Source [id number] 03/05/2020 12:25:00 AM EDT [facility] Name Value Range Interpretation Code Description Data Ashley rce(s) Supporting Document(s) URINALYSIS [facility] URINALYSIS SOURCE [facility] COLOR Dk Yellow NORMAL: Yellow [facility] CLARITY Clear NORMAL: Clear [facility] Specific gravity of Urine by Test strip 1.010 1.001 - 1.030 [facility] pH 7 5 - [address] [facility] al Glucose [Mass/volume] in Urine by Test strip Negative NORMAL: Negat [facility] Bilirubin.total [Presence] in Urine by Test strip Negative NORMAL: Negative [facility] Ketones [Presence] in Urine by Test strip 150 NORMAL: Negative [facility] Protein [Mass/volume] in Urine by Test strip 15 NORMAL: Negat [facility] Nitrite [Presence] in Urine by Test strip Negative NORMAL: Negative [facility] BLOOD 250 NORMAL: Negative [facility] Leukocyte esterase [Presence] in Urine by Test strip 100 MARY BETH L: Negative [facility] Urobilinogen [Mass/volume] in Urine by Test strip NOR less shireen n 1.0 mg/dL [facility] MICROSCOPIC See Below [facility] ital WBC 3 - 5 NORMAL: NONE SEEN [facility] Erythrocytes [#/volume] in Urine by Test strip 0 - 1 NORMAL: NON E SEEN [facility] EPITHELIAL FEW NORMAL: NONE SEEN [facility] Bacteria [Presence] in Urine sediment by Light microscopy Tr catrachita NORMAL: NONE SEEN [facility] Mucus [Presence] in Urine sediment by Light microscopy 1+ NOR MAL: NONE SEEN [facility] ID Date Data Source [id number] 03/05/2020 12:25:00 AM EDT [facility] Name Value Range Interpretation Code Description Data Ashley rce(s) Supporting Document(s) Prothrombin time (PT) 13.9 SECONDS 11.0 - 15.5 [facility] INR in Platelet poor plasma by Coagulation assay 1.06 0.93 - 1. 23 [facility] aPTT in Blood by Coagulation assay 29.8 SECONDS 24.8 - 36.7 [facility] \\BLDo\\INR INTERPRETATION\\BLDx\\ Therapeutic range for Coumadin and related oral anticoagulants. - International Normalized Ratio (INR): 2.0 - 3.0 for Venous Thrombosis, Pulmonary Embolus, Tissue heart valves, Acute NV Atrial Fibrillation, Valvular heart disease and recurrent Systemic Embolism. - International Normalized Ratio (INR): 2.5 - 3.5 for Mechanical Prosthetic valve. ID Date Data Source [id number] 11/21/2019 12:00:00 AM EDT [facility] Mathew Thomson Patient Name: RUPESH RIVERA[address] [facility] Date of : [address] [address] Date of Exam: 11/21/2019PH#: Fax: [phone] EXAM: US OB 2ND & 3RD TRIMESTER, COMPLETE- SINGLE FETUSCLINICAL INFORMATION: Supervision of .LMP: 05/30/2019 = 25 weeks 0 days, ARNAV(LMP) = 03/05/2020Today's sono findings = 24 weeks 0 days, ARNAV (today's sono) = 03/12/2020Fetal Number: SingletonFetal Position: VertexFetal Heart Rate: 134 BPMPlacental Position: Anterior, Grade 1Amniotic Fluid Volume: NormalCervix Length: 4.8 cmFETAL MEASUREMENTS:BPD: 5.7 cm = 23 weeks 3 daysHC: 21.1 cm = 23 weeks 1 dayAC: 20.4 cm = 25 weeks 0 daysFL: 4.5 cm = 24 weeks 6 daysHL: 3.9 cm = 23 weeks 6 daysEstimated Weight: 723 grams, 1 pound 9 ounces, 63rd percentileThe following structures are visualized and are unremarkable:Cranium, cavum, cerebellum, posterior fossa-cisterna magna, choroid plexus,midline falx, lateral ventricles, orbits, face-profile, face-lips/mouth,neck, 4-chamber heart, RVOT, LVOT, diaphragm, stomach, kidneys, bladder,abdominal wall, cord insertion, umbilical arteries, 3-vessel cord, colorDoppler, spine and upper and lower extremities.Accredited by the [employer] in Obstetrical Ultrasound.HUI Miramontes/Letitia bradford for referring RUPESH RIVERA to our office. Electronically Signed - ARIEL STEVENSON DO 11/21/19 16:35 Name Value Range Interpretation Code Description Data Ashley rce(s) Supporting Document(s) ID Date Data Source [id number] 09/24/2019 10:34:00 AM EDT [facility] Name Value Range Interpretation Code Description Data Ashley rce(s) Supporting Document(s) CULTURE URINE [facility] spital _CULTURE URINE_$$[id number]$$[id number]$$[id number]$$[id number]$$[id number]$$[id number]$$[id number]$$[id number]$$[id number]$$ 809039$$027540$$159804$$180449$$[id number]$$[id number]$$[id number]$$[id number]$$[id number]$$[id number]$$ 111146$$530707$$[id number]$$[id number]$$[id number]$$[id number]$$[id number]$$[id number] -- Continued on next page --Patient: MIGUEL GODDARD N Order: [id number] Page 2Culture: CULTURE URINE Status: Final ==== -- Continued on next page --Patient: MIGUEL GODDARD N Order: [id number] Page 2Culture: CULTURE URINE Status: Prelim =====$$[id number]$$[id number] DATE/TIME: 09/24/2019 10:05Culture: CULTURE URINE Status: FinalUrine Culture,Comprehensive: P1No growth in 36 - 48 hours. Previous result entered on 09/23/2019 09:36 ET No growth after 18-24 hours.P1 Test performed by: [facility] #: [id number] [address] [phone] [facility] [address]Medical Director : Favian Pfeiffer MD NPI #:Lab Di liv : 09/23/19.1132.XMT.SENT REF 09/24/19.1034.XMT.SENT REF ID Date Data Source [id number] 09/22/2019 06:11:00 AM EDT [facility] Name Value Range Interpretation Code Description Data Ashley rce(s) Supporting Document(s) HIV 1+2 Ab+HIV1 p24 Ag [Presence] in Serum or Plasma b y Immunoassay Non Reactive Non Reactive [facility] ID Date Data Source [id number] 09/20/2019 05:32:00 PM EDT [facility] Name Value Range Interpretation Code Description Data Ashley rce(s) Supporting Document(s) ABO group [Type] in Blood A [facility] Rh [Type] in Blood POSITIVE [facility] AB SCREEN NEGATIVE NORMAL: NEGATIVE [facility] { ABO/RH REENTER A POSITIVE{ AB SCREEN RE-ENTER NEGATIVE ID Date Data Source [id number] 09/20/2019 04:38:00 PM EDT [facility] Value Range Interpretation Code Description Data Ashley rce(s) Supporting Document(s) Treponema pallidum Ab [Presence] in Serum NON-REACTIVE NORMAL:NON DAVID CTIVE [facility] ID Date Data Source [id number] 09/20/2019 04:38:00 PM EDT [facility] Value Range Interpretation Code Description Data Ashley rce(s) Supporting Document(s) Rubella virus IgG Ab [Units/volume] in Serum 50.750 IU/ml [facility] REACTI VE \\BLDo\\Rubella Immunity Interpretation\\BLDx\\ Non-reactive: <10 IU/mL Reactive: greater than or equal to 10 IU/mL A reactive result is presumptive evidence of immunity to Rubella, except when acute infection is suspected. ID Date Data Source [id number] 09/20/2019 04:37:00 PM EDT [facility] Name Value Range Interpretation Code Description Data Ashley rce(s) Supporting Document(s) Hepatitis B virus surface Ab [Units/volume] in Serum o r Plasma by Immunoassay NONREACTIVE NORMAL:NON REACTIVE [facility] ID Date Data Source [id number] 09/20/2019 04:10:00 PM EDT [facility] Name Value Range Interpretation Code Description Data Ashley e(s) Supporting Document(s) CBC W/AUTOMATED DIFF [facility] COMPLETE BLOOD COUNT Leukocytes [#/volume] in Blood by Automated count 8.6 10^3/uL 4.2 - 1 1.0 [facility] Erythrocytes [#/volume] in Blood by Automated count 4.23 10^6/uL 4. 20 - 5.40 [facility] Hemoglobin [Mass/volume] in Blood 11.7 g/dL 12.0 - 16.0 L [facility] Hematocrit [Volume Fraction] of Blood by Automated count 34.5 % 3 7.0 - 47.0 L [facility] Erythrocyte mean corpuscular volume [Entitic volume] by Auto mated count 81.6 fL 81.0 - 101 [facility] Erythrocyte mean corpuscular hemoglobin [Entitic mass] by Automated count 27.7 pg 27.0 - 34.0 [facility] Erythrocyte mean corpuscular hemoglobin concentration [Mass/volume] by Automated count 33.9 g/dL 31.0 - 36.0 [facility] Erythrocyte distribution width [Ratio] by Automated count 12.9 % 11.5 - 14.5 [facility] Platelets [#/volume] in Blood by Automated count 212 10^3/uL 150 - 45 0 [facility] Platelet mean volume [Entitic volume] in Blood by Automated count 9.8 fL 7.4 - 10.4 [facility] Neutrophils/100 leukocytes in Blood by Automated count 74.6 % 37. 0 - 80.0 [facility] Lymphocytes/100 leukocytes in Blood by Manual count 17.7 % 25.0 - 40.0 L [facility] Monocytes/100 leukocytes in Blood by Automated count 5.6 % 3.0 - 8.0 [facility] Eosinophils/100 leukocytes in Blood by Automated count 1.4 % 0.0 - 7.0 [facility] Basophils/100 leukocytes in Blood by Automated count 0.2 % 0.0 - 2.5 [facility] %IG 0.5 % 0.0 - 0.0 [facility] %NRBC 0.0 % 0.0 - 0.[address] [facility] al Neutrophils [#/volume] in Blood by Automated count 6.38 10^3/uL 2.00 - 6.90 [facility] Lymphocytes [#/volume] in Blood by Automated count 1.51 10^3/uL 0.60 - 3.40 [facility] Monocytes [#/volume] in Blood by Automated count 0.48 10^3/uL 0.00 - 0.90 [facility] Eosinophils [#/volume] in Blood by Automated count 0.12 10^3/uL 0.00 - 0.70 [facility] Basophils [#/volume] in Blood by Automated count 0.02 10^3/uL 0.00 - 0.20 [facility] #IG 0.04 10^3/uL 0.00 - 0.10 [facility] ospital #NRBC 0.00 10^3/uL 0.00 - 0.00 [facility] MANUAL DIFF NOT INDICATED [facility] RBC MORPH NOT INDICATED [facility] ID Date Data Source [id number] 09/20/2019 04:10:00 PM EDT [facility] Name Value Range Interpretation Code Description Data Ashley rce(s) Supporting Document(s) URINALYSIS [facility] URINALYSIS SOURCE R [facility] COLOR yellow NORMAL: Yellow [facility] CLARITY clear NORMAL: Clear [facility] Specific gravity of Urine by Test strip 1.015 1.001 - 1.030 [facility] pH 6.5 5 - [address] [facility] al Glucose [Mass/volume] in Urine by Test strip NORM NORMAL: Negat [facility] Bilirubin.total [Presence] in Urine by Test strip NEG NORMAL: Negative [facility] Ketones [Presence] in Urine by Test strip 5 NORMAL: Negative A [facility] Protein [Mass/volume] in Urine by Test strip 15 NORMAL: Negat [facility] Nitrite [Presence] in Urine by Test strip NEG NORMAL: Negative [facility] BLOOD NEG NORMAL: Negative [facility] Leukocyte esterase [Presence] in Urine by Test strip 25 MARY BETH L: Negative [facility] Urobilinogen [Mass/volume] in Urine by Test strip 1 less shireen n 1.0 mg/dL [facility] MICROSCOPIC See Below [facility] ital WBC 1 - 3 NORMAL: NONE SEEN [facility] EPITHELIAL MANY NORMAL: NONE SEEN A [facility] Bacteria [Presence] in Urine sediment by Light microscopy 2+ MOD NORMAL: NONE SEEN A [facility] ID Date Data Source [id number] 08/23/2019 03:03:00 PM EDT [facility] ([facility]) Name Value Range Interpretation Code Description Data Ashley rce(s) Supporting Document(s) Source: Random Void [facility] ([facility]) {SOURCE: Random Void~OFF URINE Chlamydia trachomatis,Shanon COMMENT [facility] ([facility]) {SOURCE: Random Void~OFF URINE Neisseria gonorrhoeae,Shanon Negative [facility] ([facility]) {SOURCE: Random Void~OFF URINE ID Date Data Source [id number] 08/23/2019 02:19:00 PM EDT [facility] ([facility]) Name Value Range Interpretation Code Description Data Ashley rce(s) Supporting Document(s) Laboratory test finding (navigational concept) <pending> [facility] ([facility]) ID Date Data Source [id number] 08/26/2019 12:28:00 AM EDT [facility] Name Value Range Interpretation Code Description Data Ashley rce(s) Supporting Document(s) SOURCE: Random Void [facility] ital Chlamydia trachomatis rRNA [Presence] in Unspecified specimen by Probe and target amplification method COMMENT Negative [facility] Result being verified. Final report to romana geller. Neisseria gonorrhoeae rRNA [Presence] in Unspecified specimen by Probe and target amplification method Negative Negative [facility] ID Date Data Source [id number] 08/23/2019 02:12:00 PM EDT [facility] ([facility]) Name Value Range Interpretation Code Description Data Ashley rce(s) Supporting Document(s) Z#Other Observations <pending> [facility] ([facility]) ID Date Data Source [id number] 08/23/2019 02:06:00 PM EDT [facility] ([facility]) Name Value Range Interpretation Code Description Data Ashley rce(s) Supporting Document(s) Inhouse Urine Test positive [facility] ([facility]) ID Date Data Source [id number] 07/07/2019 10:12:03 AM [facility] Menstrual HistoryLast Menstrual Period ( LMP): 05/30/2019LMP History: DefiniteOB Past History History Total Preg.: 1 Menstrual History LMP: 05/30/2019LMP Hx: DefiniteUse Contraception? NoMenstrual History and DatingPregnancy Dating Last Menstrual Period (LMP): 05/30/2019 ARNAV by LMP: 03/05/2020 EGA by LMP: 5 Weeks 3 Days LMP Hx: DefiniteLabs In-House Urine TestsDate/Time Collected: July 07, 2019 10:32 AMTest Result Reference Range Normal ValueUrine HCG: positive NegativeTico Hoang MA, July 07, 2019 10:32 AMBlood TestsDate/Time Collected: July 07, 2019 10:12 AMTest Result Reference Range Normal ValueComments: blood draw done in offcie done in the right ac tolerated well Tico Hoang MA, July 07, 2019 10:12 AMAssessment & Plan Problems:Assessed:Urine test positive (ICD-V22.2) (DOT19-C23.01) Assessment: Pt requested urine HCG in office and the blood work too. Both done. If quant is positive, will refer to [facility]. Instructions: Reviewed with patient important information regarding care during : no deli meat, cat litter scooping, no alcohol. Avoid caffeine. Stay hydrated and eat healthy foods. Tylenol only for pain, no OTC medications or aleve//aspirin/ibuprofen. Recommend a daily.Patient Instructions/Care Plan: Urine test positive: Reviewed with patient important information regarding care during : no deli meat, cat litter scooping, no alcohol. Avoid caffeine. Stay hydrated and eat healthy foods. Tylenol only for pain, no OTC medications or aleve//aspirin/ibuprofen. Recommend a daily. Plan developed in collaboration with patient and/or familyOrders:[id number] Vst-Est Level I [CPT-19670] 02287 - Venipuncture [CPT- 80672] URINE TEST [CPT-16040] Name Value Range Interpretation Code Description Data Ashley rce(s) Supporting Document(s) ID Date Data Source [id number] 07/07/2019 10:12:03 AM EST [facility] Name Value Range Interpretation Code Description Data Ashley rce(s) Supporting Document(s) PREG TST URN positive [facility] ID Date Data Source [id number] 07/07/2019 10:05:00 AM EST [facility] Name Value Range Interpretation Code Description Data Ashely rce(s) Supporting Document(s) VIT D25 TOT 13.1 ng/mL 30.0-100.0 L [facility] BG FASTING 83 mg/dL 70-100 [facility] T4, FREE 1.19 ng/dL 0.78-1.33 [facility] TSH 2.470 microintl units/mL 0.463-3.98 [facility] ID Date Data Source [id number] 07/07/2019 10:05:00 AM [facility] Name Value Range Interpretation Code Description Data Ashely rce(s) Supporting Document(s) HCT 39.6 % 36.0-47.0 N [facility] HGB 12.5 g/dL 12.0-15.5 N [facility] MCH 31.6 G/DL pg 32.0-36.5 L [facility] MCHC 26.6 PG % 27.0-33.0 L [facility] PLATELETS 258 10 10*3/mm3 150-450 N [facility] RBC 4.70 10 10*6/mm3 4.00-5.40 [facility] RDW 13.2 % 11.5-14.5 [facility] WBC TOTAL 7.3 4.0-10.0 N [facility] ID Date Data Source [id number] 07/07/2019 10:05:00 AM [facility] Name Value Range Interpretation Code Description Data Ashley rce(s) Supporting Document(s) HGBA1C 4.9 % N [facility] ID Date Data Source [id number] 06/03/2019 03:32:12 PM [facility] Measurements & CalculationsHeight: 63 inches (5 ft. 3 in.) 160.02 cm Weight: 187.2 pounds 85.09 kg Body Mass Index (BMI): 33.28BMI Interpretation: ObeseBody Surface Area (BSA): 1.88Weight Management Education Done (Nutrition/Physical Activity)Vital SignsTemperature: 97.5F oral Pulse Rate: 97 beats/minuteRespirato ry Rate: 17 respirations/minuteBlood Pressure: 96/68 left arm sitting automaticO2 Saturation: 97% room airVital Signs performed by: Jelly Torres LPN, June 03, 2019 3:55 PMRespiratory Assessment Patient EducationEducation: Advised to Quit SmokingInitial Intake Information from: patientRoom #: 14Infectious Disease- Travel Have you or your sexual partner travelled outside of the country recently? NoSmoking, Tobacco or Smoke Exposure StatusSmoke Status: current some day smokerTobacco Use: YesAdv to Quit: YesPassive Smoke Exposure: YesMenstrual HistoryLast Menstrual Period (LMP): 05/31/2019Any possibility of ? NoHealthcare HistorySince your last office visit...Have you been admitted to the hospital? NoHave you been to an emergency room (ER) or urgent care clinic? Yes - [facility] sore throatEmergency room (ER) or urgent care date reported today: 05/26/2019Have you seen another healthcare provider? NoHave you seen a dentist? NoAdditional Comments: vapingIntake performed by: Jelly Torres LPN, June 03, 2019 3:37 PMRate Your HealthIn general, would you say your health is? FairPain AssessmentAre you currently having any pain which... You would like your provider to address? No Affects your activity level? NoDepression Screening - PHQ-2Over the last two weeks, have you... Had little interest or pleasure in doing things? More than half the days Been feeling down, depressed, or hopeless? More than half the days PHQ-2 Score: 4Anxiety Screening - JOSE A-2Over the last two weeks, have you been... Feeling nervous, anxious, or on edge? Not at all Unable to stop or control worrying? More than half the days JOSE A-2 Score: 2Infectious Disease- Travel Cont. Any possibility of ? NoGeneralized Anxiety Disorder 7-Item Screening (JOSE A-7)Answer Guide:0 = Not at all1 = Several days2 = Over half the days3 = Nearly every dayOver the last 2 weeks, how often have you been bothered by the following problems?Feeling nervous, anxious, or on edge: 0Not being able to stop or control worryinWorrying too much about different things: 2Trouble relaxinBeing so restless that it's hard to sit still: 2Becoming easily annoyed or irritable: 3Feeling afraid as if something awful might happen: 2Answer Guide:0 = Not difficult at all1 = Somewhat difficult2 = Very difficult3 = Extremely difficultHow difficult have these made it for you to do your work, take care of things at home, or get along with other people? 1GAD-7 Screening Results JOSE A-2 Score: 2GAD-7 Score: 12Functional Impairment: Somewhat difficultRecommendation: Moderate anxietyPHQ-9 1. Over the last 2 weeks, patient reports the following frequency of symptoms: a. Little interest or pleasure in doing things -More than half the days b. Feeling down, depressed, or hopeless -More than half the days c. Trouble falling asleep, staying asleep, or sleeping too much -Nearly every day d. Feeling tired or having little energy -More than half the days e. Poor appetite or overeating -More than half the days f. Feeling bad about yourself, feeling that you are a failure, or feeling that you have let yourself or your family down -More than half the days g. Trouble concentrating on things such as reading the newspaper or watching television -Not at all h. Moving or speaking so slowly that other people could have noticed. Or being so fidgety or restless that you have been moving around a lot more than usual -Nearly every day i. Thinking that you would be better off or that you want to hurt yourself in some way -Not at all2. If you checked off any problems, how difficult have these problems made it for you to do your work, take care of things at home, or get along with other people? -Very DifficultToday's PHQ-9 Results Score: 16 Severity: Moderately Severe Diagnosis Recommendation: Major Depression Functional Impairment: Very DifficultPRAPARE Sociodemographic Characteristics Race: White Ethnicity: Not or Preferred Language: EnglishFamily and Home Address: [address] [place] [address] [place] [address] What is your housing situation today? I have housing Are you worried about losing your housing? NoMoney and Resources What is the highest level of school that you have finished? high school graduate Employed? No Are you seeking work? Yes Insurance: [facility] Essential PlanIn the past year, have you or any family members you live with been unable to get any of the following when it was really needed? Denies Insecurity: food, utilities, clothing, child development director, phone, legal services, otherIn the past year, have you had trouble affording costs associated with health insurance (such as deductibles, co-payments, etc.)? NoSocial and Emotional Health How often do you see or talk to people that you care about and feel close to? More than 5 times a week How stressed are you? Very muchAdditional Optional Domains In the past 3 months, have you spent more than 2 nights in a row in a long-term, senior care, assisted center or juvenile correctional facility? No Has lack of transportation kept you from medical appointments or from getting your medications? NoIn the past year, have you had trouble getting any of the following when it was really needed (check all that apply)?noneIn the past year, have you had trouble paying the costs associated with health care or medicine (such as co-payments, costs for services, prices of medicines)? NoHow confident are you that you can control and manage most of your health problems? Somewhat confident Are you a refugee? No (Country of origin: [facility]) Do you feel physically and emotionally safe where you live? Yes In the past year, have you been afraid of a partner, ex-partner? NoScreening, Brief Intervention, & Referral to Treatment (SBIRT)Pre-Screening Questions How many times have you have 4 or more drinks in a day? 0How many times have you used an illegal drug or used a prescription medication for a non-medical reason? 0Performed by: Jelly Torres LPN, June 03, 2019 3:44 PMPatient History Medical History:ADHDovarian cystsSurgical History:AppendectomyFamily History:Diabetes (Father, Maternal Grandmother)Hypertension (Maternal Grandmother)Cancer - Lung (Maternal Grandmother)Cancer-Liver (maternal grandmother)pylops on Thyroid (mother)Cancer - Lung (Paternal Grandmother)Myocardial infarction ([place]) (Maternal Grandfather)Hypertension (Paternal Grandfather)COPD (Paternal Grandfather)Social/Personal History: Smoking Status: current some day smokerAdvised to Quit/Tobacco Education: YesChief Complaintestablish careHistory of Present Illness (HPI)ILin [place], am scribing for and in the presence of, Dr Lonny Chan MD19 yo female here to establish care.Pt states she is concerned about her depression & medications. Have discussed putting patient back on Concerta so she is able to go to college as she is afraid of failing due to ADHD, 8/10 in severity, worse wtih stress, better with rest, non- radiaitng, not assoc with SI/ HI/ deluiions.Needs referral to [facility] for her cysts on her ovariesPt states that she has recently moved up here from [facility] and forgot her medications when she moved. She was on Xanax - would like something else to take rather than this. Will begin on Lexapro 10mg.Denies any abuse with her SO, no drinking/drug abuse. Does not currently have a counselor, will refer for in house today. Will send referral for [facility] to [facility]. Will send chantix for patient as she is a current smoker, and is interested in tobacco cessation. She is also waiting to go see ENT to get her tonsils out as they are enlarged. Wnts cpe labs- gets occas arthralgias- wants Lyme testingTransitions of Care InboundProblem ReviewProblem List was reviewed and/or updated during this visit.Medication Reconciliation & ReviewMedication List was reviewed and/or updated during this visit, including review of any [id number] medications, herbal therapies, and/or supplements.Allergy ReviewAllergy List was reviewed and/or updated during this visit. Patient has no known allergies.Adult Preventive CareProvider Calculated and Reviewed all Clinical Protocols for patient today. Screening Tobacco Screening: Smoking Status: current some day smoker (06/03/2019) Advised to Quit: Yes (06/03/2019)Labs/Meds/Other Counseling-Nutrition and Physical Activity:BMI Interpretation: Obese (06/03/2019) Counseling: Done (06/03/2019) Physical Activity: Done (06/03/2019)Review of Systems General: GEN: No night sweats, weight loss, fevers, chillsEyes: No vision changesEars: No hearing lossNose: No sinus painThroat: No sore throatResp: No sob, wheezingCV: No chest painGI: No abdominal painGU: No dysuria, urinary frequencyMusculoskeletal: No myalgias, arthralgiasNeuro: No MADRID, unilateral paresthesias, weaknessLympatics: No Lymph node swellingEndocrine: No polydipsia, polyuriaPhysical ExamGeneral Appearance: well nourished, well hydrated, no acute distressEyes, External: conjunctivae and lids normal, EOMIExternal Ears: normal, no lesions or deformitiesHearing: grossly intactOtoscopy: canals clear, tympanic membranes intact, no fluid, light reflex intact bilaterallyExternal Nose: normal, no lesions or deformitiesNasal: mucosa, septum, and turbinates normal, nares patentLips/Teeth/Gums: normal dentition, no gingival inflammation, no labial lesionsPharynx: tongue normal, posterior pharynx without erythema or exudate, no thrush/aphthous ulcer; tonsils 3-4+ bilaterallyRespiratory, Auscultation: clear to auscultation bilaterally; no rales, rhonchi, or wheezesRespiratory, Effort: no intercostal retractions or use of accessory musclesCardiovascular, Auscultation: S1, S2 audible; no murmur, rub, or gallop; RRRPeripheral Circulation: no clubbing, cyanosis, edema, or varicositiesAbdomen: soft, non- tender, no masses, bowel sounds normalGait & Station: normalSkin, Inspection: no rashes, lesions, or ulcerationsOrientation: oriented to time, place, and personMood & Affect: no depression, anxiety, or agitationJudgment & Insight: intactCare Management Plan Transitions of CareInboundRate Your HealthIn general, would you say your health is? FairAssessment & Plan Problems:Added: Anxiety disorder, unspecified (DFW73-C03.9)Attention-deficit hyperactivity disorder, unspecified type (SAS10-H03.9)Chronic disease of tonsils AND/OR adenoids (ICD- 474.9) (LSX00-M97.9) Assessment: Instructions: Counseled patient on all diagnoses/ treatments. Return to clinic/ ER for any worsening symptoms or concernsENT consult sentUnspecified ovarian cyst, unspecified side (ICD-620.2) (UNP95-P35.209) Assessment: Instructions: Counseled patient on all diagnoses/ treatments. Return to clinic/ ER for any worsening symptoms or concernsGYN consult sentUnspecified asthma with status asthmaticus (ICD10- J45.902) Assessment: Instructions: Counseled patient on all diagnoses/ treatments. Return to clinic/ ER for any worsening symptoms or concernsMedication issuedNicotine dependence (ICD-305.1) (YDS77-I89.200) Assessment: Instructions: Counseled on tobacco cessation for 10 min.Medication issuedVitamin D deficiency, unspecified (KRQ07-C14.9) Assessment: Instructions: Counseled patient on all diagnoses/ treatments. Return to clinic/ ER for any worsening symptoms or concernsMedication issuedPain in unspecified joint (MGA86-F05.50) Assessment: Instructions: Counseled patient on all diagnoses/ treatments. Return to clinic/ ER for any worsening symptoms or concernslabs orderedEncounter for screening for other metabolic disorders (TXC01-Y01.228) Assessment: Instructions: Counseled patient on all diagnoses/ treatments. Return to clinic/ ER for any worsening symptoms or concernslabs orderedPatient Instructions/Care Plan: Chronic disease of tonsils AND/OR adenoids: Counseled patient on all diagnoses/ treatments. Return to clinic/ ER for any worsening symptoms or concernsENT consult sentUnspecified ovarian cyst- unspecified side: Counseled patient on all diagnoses/ treatments. Return to clinic/ ER for any worsening symptoms or concernsGYN consult sentUnspecified asthma with status asthmaticus: Counseled patient on all diagnoses/ treatments. Return to clinic/ ER for any worsening symptoms or concernsMedication issuedNicotine dependence: Counseled on tobacco cessation for 10 min.Medication issuedVitamin D deficiency- unspecified: Counseled patient on all diagnoses/ treatments. Return to clinic/ ER for any worsening symptoms or concernsMedication issuedPain in unspecified joint: Counseled patient on all diagnoses/ treatments. Return to clinic/ ER for any worsening symptoms or concernslabs orderedEncounter for screening for other metabolic disorders: Counseled patient on all diagnoses/ treatments. Return to clinic/ ER for any worsening symptoms or concernslabs ordered Plan developed in collaboration with patient and/or familyMedications:VITAMIN D (CHOLECALCIFEROL) 25 MCG (1000 UT) ORAL CAPSULEVITAMIN D (ERGOCALCIFEROL) 15303 UNIT ORAL CAPSULENICOTROL 10 MG INHALATION INHALERVENTOLIN HFA 108 (90 BASE) MCG/ACT INHALATION AEROSOL SOLUTIONMETHYLPHENIDATE HCL ER 18 MG ORAL TABLET EXTENDED RELEASELEXAPRO 10 MG ORAL TABLETMedication Changes:New Prescription:LEXAPRO 10 MG ORAL TABLET-1 po qday Qty: 30[Tablet] Refills: 5 Method: ElectronicMETHYLPHENIDATE HCL ER 18 MG ORAL TABLET EXTENDED RELEASE-1 po q am Qty: 30[Tablet] Refills: 0 Method: ElectronicVENTOLIN HFA 108 (90 BASE) MCG/ACT INHALATION AEROSOL [id number] puffs q 4-6 hours prn wheezing Qty: 1[Inhalation] Refills: 5 Method: ElectronicNICOTROL 10 MG INHALATION INHALER-use 1 vial every 4-6 hours Qty: 120[Inhaler] Refills: 5 Method: ElectronicVITAMIN D (ERGOCALCIFEROL) 79956 UNIT ORAL CAPSULE-1 po q wk for 12 wks Qty: 12[Capsule] Refills: 0 Method: ElectronicVITAMIN D (CHOLECAL CIFEROL) 25 MCG (1000 UT) ORAL CAPSULE-1 po daily beginning in 3 mos Qty: 30[Capsule] Refills: 5 Method: ElectronicAllergies:No Known Allergies (updated 06/03/2019) Orders:Psychology Consult [CPT-44140] Telepsychiatry Consult [CPT-20639] COMP METABOLIC PANEL [CPT-38629] CBC W/DIFF [CPT-39166] HgBA1c [CPT-21286] LIPID PANEL [CPT-41984] TSH [CPT-83013] T-4 free [CPT-58525] Vitamin D 250H Unspecified [CPT-09114] URINALYSIS [CPT-33173] Lyme Antibody [CPT-49269] Academic Advising Director [CPT-47124] ENT Consult [CPT-88259] Adult - Ofc Vst, NEW, Level IV [CPT-35081] Follow-Up Return to clinic: in 30 days for f/uAdditional Follow-Up: Counseled patient on all diagnoses/ treatments. Return to clinic/ ER for any worsening symptoms or concernsClinical Visit Summary Declined Name Value Range Interpretation Code Description Data Ashley rce(s) Supporting Document(s) Procedure Social History Code Duration Value Status Description Data Source(s ) 03/05/2020 12:00:00 AM EDT completed [facility] ([facility]) Vital Signs ID Date Data Source UNK Name Value Range Interpretation Code Description Data Source(s) Body surface area 1.91 m2 1.91 m2 [facility] ([facility]) Body mass index (BMI) [Ratio] 32.3 kg/m2 32.3 k g/m2 [facility] ([facility]) Body height 64 [in_i] 64 [in_i] [facility] ([facility]) 5'4" Body weight 85.277 kg 85.277 kg [facility] ([facility]) Body weight 188.00 [lb_av] 188.00 [lb_av] MEDEN T ([facility]) Body temperature 98.6 [degF] 98.6 [degF] [facility] ([facility]) Heart rate 70 /min 70 /min [facility] ([facility]) Diastolic blood pressure 65 mm[Hg] 65 mm[Hg] [facility] ([facility]) Systolic blood pressure 102 mm[Hg] 102 mm[Hg] [facility] Body surface area 1.92 m2 1.92 m2 [facility] ([facility]) Body mass index (BMI) [Ratio] 32.8 kg/m2 32.8 k g/m2 [facility] ([facility]) Body height 64 [in_i] 64 [in_i] [facility] ([facility]) 5'4" Body weight 86.638 kg 86.638 kg [facility] ([facility]) Body weight 191.00 [lb_av] 191.00 [lb_av] MEDEN T ([facility]) Heart rate 80 /min 80 /min [facility] ([facility]) Diastolic blood pressure 60 mm[Hg] 60 mm[Hg] [facility] ([facility]) Systolic blood pressure 90 mm[Hg] 90 mm[Hg] M EDENT ([facility]) Body mass index (BMI) [Ratio] 31.0 kg/m2 31.0 k g/m2 [facility] ([facility]) Body height 63 [in_i] 63 [in_i] [facility] ([facility], [facility]) 5'3" Body weight 175.00 [lb_av] 175.00 [lb_av] MED[facility] T ([facility], [facility]) Body temperature 99.4 [degF] 99.4 [degF] [facility] ([facility], [facility]) Oxygen saturation in Arterial blood by Pulse oximetry 99 % 99 % [facility] ([facility], [facility]) Respiratory rate 16 /min 16 /min [facility] ( [facility], [facility]) Heart rate 80 /min 80 /min [facility] ([facility], [facility]) Diastolic blood pressure 80 mm[Hg] 80 mm[Hg] [facility] ([facility], [facility]) Systolic blood pressure 113 mm[Hg] 113 mm[Hg] M [facility] ([facility], [facility]) ID Date Data Source [id number] 03/09/2020 02:07:02 PM EDT [facility] Name Value Range Interpretation Code Description Data Source(s) WEIGHT RECORDED 208.00 pounds 208.00 pounds [facility] Height 65 Inches 065 Inches [facility]
[2020-07-20] MEDS ORDERED: CEPH500T PO (22:31)
--- OUTSIDE RECORDS SUMMARY | 2020-07-20 22:44 | CCD ---
Author Author [facility] Organization [facility] Address Unknown Phone Unavailable Care Team Providers Care Invasive Cardiovascular Technologist Name Role Phone Romana JAMES MD Unavailable [...] Unavailable Unavailable JACOBRomana MD Unavailable Unavailable JACOBRomana MD Unavailable Unavailable JACOB, F HERVE MD [...] Unavailable Unavailable Koko CHAN MD Unavailable Unavailable Kkoo CHAN MD Unavailable Unavailable Koko CHAN MD [...] is protected by Article 27-F of the [facility] Public Health law. If you continue you may have access to information: Regarding HIV / AIDS; Provided by facilities licensed or operated by the [facility] Office of Mental Health; or Provided by the [facility] Office for People With Developmental Disabilities. If such information is present, then the following [facility] mandated warning applies: This information has [...] law may result in a fine or senior living sentence or both. A general authorization for the release of medical or other information is NOT sufficient authorization for further disc losure. Allergies and Adverse Reactions Type Description Substance Reaction Status Data Source(s ) No Known Allergies No Known Allergies [facility] Encounters Encounter Providers Location Date Indications Data Source(s ) [facility]patient [facility]w [facility] CNM 03/04/2020 11:05:00 PM EDT - 03/07/2020 01:20:[address] [facility] Patient discharged. Outpatient Referrer: Mathew Pérez CNM 11/21/2019 03:08:00 P M EDT [facility] Outpatient Referrer: Mathew Pérez CNM 11/21/2019 03:08:00 P M EDT [facility] Outpatient Referrer: Mathew THOMSON 11/21/2019 03:05:00 P M EDT [facility] Outpatient Referrer: Mathew THOMSON 11/21/2019 03:03:00 P M EDT [facility] Outpatient Referrer: Mathew THOMSON 11/10/2019 03:39:00 P M EDT [facility] Outpatient 11/10/2019 03:37:00 PM EDT [facility] Outpatient Attender: RONNIE SIMS MD 01:27:00 PM EDT - 10/18/2019 01:27:[address] [facility] Outpatient Attender: LONNY CHAN MD 10/17/2019 04:59:[address] [facility] Outpatient Attender: Mathew Pérez CNMAttender: HERVE Dowling MD 09/20/2019 01:33:00 PM EDT - 09/20/2019 01:33:[address] [facility] Outpatient Attender: Mathew THOMSON 2019 12:49:00 PM EDT - 08/23/2019 12:49:[address] [facility] Outpatient 08/23/2019 09:55:00 AM EDT [facility] Outpatient 07/19/2019 03:19:00 PM EST [facility] Outpatient Attender: LONNY CHAN MD 07/19/2019 01:29:01 P [facility] Outpatient Attender: LONNY CHAN MD 07/19/2019 01:29:01 P [facility] Outpatient Attender: LONNY CHAN MD 07/12/2019 10:43:00 A [facility] Outpatient Attender: LONNY CHAN MD 07/08/2019 03:42:00 P [facility] Outpatient Attender: LONNY CHAN MD 07/08/2019 11:46:02 A [facility] Outpatient Attender: LONNY CHAN MD 07/07/2019 03:09:02 P [facility] Outpatient Attender: LONNY CHAN MD 07/07/2019 03:09:01 P [facility] Outpatient Attender: LONNY CHAN MD 07/07/2019 11:20:17 A [facility] Outpatient Attender: LONNY CHAN MD 07/06/2019 02:56:[address] [facility] Outpatient Attender: LONNY CHAN MD 07/06/2019 01:04:01 P [facility] Outpatient Attender: LONNY CHAN MD 07/06/2019 12:35:00 P [facility] Outpatient Attender: LONNY CHAN MD 07/06/2019 12:34:01 P [facility] Outpatient Attender: LONNY CHAN MD 07/06/2019 11:52:01 A [facility] Outpatient Attender: LONNY CHAN MD 06/06/2019 06:00:03 A [facility] Outpatient Attender: LONNY CHAN MD 06/06/2019 05:59:01 A [facility] Outpatient Attender: LONNY CHAN MD 06/03/2019 05:20:01 P [facility] Outpatient Attender: LONNY CHAN MD 06/03/2019 05:19:00 P [facility] Outpatient Attender: LONNY CHAN MD 06/03/2019 03:54:00 P [facility] Outpatient Attender: LONNY CHAN MD 06/03/2019 03:27:00 P [facility] Outpatient Attender: LONNY CHAN MD 06/03/2019 03:25:01 P [facility] Outpatient Attender: LONNY CHAN MD 05/31/2019 09:16:01 A [facility] Outpatient Attender: LONNY CHAN MD 05/31/2019 09:14:02 A [facility] Outpatient Attender: LONNY CHAN MD 05/31/2019 09:13:03 A [facility] Outpatient Attender: LONNY CHAN MD 05/30/2019 01:45:01 P [facility] Outpatient Attender: LAURA [facility] 05/30/2019 11:00:00 AM EST [facility] ([facility], [facility]) Emergency 11/27/2018 02:57:51 PM EDT - 11/27/2018 05:26:00 PM EDT chest tightness, [facility] chest tightness, Medications Medication Brand Name [...] x 09/06/2019 12:00:00 AM EDT completed [facility] ([facility]) Insurance Providers Payer name Policy type / Coverage type Policy ID Covered libertarian ID Covered libertarian's relationship to panchal Policy Panchal Plan Information [facility] [id number] SP [id number] [facility] XIX -I/P [id number] 18 [id number] [facility] PLAN XIX [id number] 18 [id number] MEDICAID -O/P EMERGENCY ROOM [id number] UNITED HE[employer]CARE(MCAID) O [id number] S [id number] [facility] COMMUNTY PLAN [id number] United Healthcare Essential Plan P [id number] S [id number] UNITED [facility] -[facility] [id number] 18 [id number] [facility] COMMUNITY PLAN [facility] [id number] SP [id number] United Healthcare Essential Plan P [id number] S [id number] United Healthcare Essential Plan P [id number] S [id number] Self Pay P UNAVAILABLE S U[place] BLE [place] [facility] ESSENTIALS PLUS 1 & 2 [id number] UNITED HEALTHCARE [id number] SP [id number] UNITED HEALTHCARE [id number] [facility] Commerical [id number] UNITED HEALTHCARE [id number] 11 [id number] [facility] HEALTH PLAN O [id number] SELF PAY Self Pay [id number] CHILD HEALTH PLUS Medicaid [id number] Problems, Conditions, and Diagnoses Code Display Name Description Problem Type Effective Dates Data Source(s) V72.42 - blood test confirms - blood test c onfirms 07/08/2019 11:45:02 AM [facility] V22.2 Urine test positive Urine test pos itive 07/06/2019 01:03:44 PM [facility] J35.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, unspecified Chronic disease of tonsils AND/OR adenoids 06/06/2019 05:58:09 AM [facility] 620.2 Unspecified ovarian cyst, unspecified si de Unspecified ovarian cyst, unspecified side 06/06/2019 05:58:09 AM [facility] [id number] Unspecified asthma with status asthmatic us Unspecified asthma with status asthmaticus 06/06/2019 05:58:09 AM [facility] F17.200 Nicotine dependence, unspecified, uncomplicated Nicoti ne dependence 06/06/2019 05:58:09 AM [facility] E55.9 Vitamin D deficiency, unspecified Vitamin D deficiency , unspecified 06/06/2019 05:58:09 AM [facility] [id number] Pain in unspecified joint Pain in unspecified joint 06/06/2019 05:58:09 AM [facility] Z13.228 Encounter for screening for other metabo lic disorders Encounter for screening for other metabolic disorders 06/06/2019 05:58:09 AM [facility] [id number] Attention-deficit hyperactivity disorder , unspecified type Attention- deficit hyperactivity disorder, unspecified type 06/06/2019 05:58:09 AM [facility] F41.9 Anxiety disorder, unspecified Anxiety disorder, unspec ified 06/06/2019 05:58:09 AM [facility] O770 Labor and delivery complicated by meconi um in amniotic fluid Labor and delivery complicated by meconium in amniotic fluid [facility] gestation of 40 weeks gestation of Diagnosis 03/04/2020 11:05:[address] [facility] E669 Obesity, unspecified Obesity, unspecified Diagnosis 03/04/2020 [facility] D[facility] Obesity complicating childbirth Obesity complica ting childbirth Diagnosis 03/04/2020 11:05:[address] [facility] F419 Anxiety disorder, unspecified Anxiety disorder, unspec ified Diagnosis 03/04/2020 11:05:[address] [facility] O639 Long labor, unspecified Long labor, unspecified Diagno sis 03/04/2020 11:05:[address] [facility] Z370 Single live Single live Diagnosis 03/04/2020 11:05:[address] [facility] X65579 Other mental disorders complicating chil dbirth Other mental disorders complicating childbirth Diagnosis 03/04/2020 11:05:[address] [facility] M88970 Other mental disorders complicating preg nelda, third trimester Other mental disorders complicating , third trimester Diagnosis 03/04/2020 11:05:[address] [facility] Z3A20 20 weeks gestation of 20 weeks gestation of Diagnosis 10/18/2019 01:27:[address] [facility] Z3402 Encounter for supervision of normal firs t , second trimester Encounter for supervision of normal first , second trimester Diagnosis 10/18/2019 01:27:[address] [facility] Z3A16 16 weeks gestation of 16 weeks gestation of Diagnosis 09/20/2019 01:33:[address] [facility] Z3482 Encounter for supervision of other mary beth l , second trimester Encounter for supervision of other normal , second trimester Diagnosis 09/20/2019 01:33:[address] [facility] Z3A12 12 weeks gestation of 12 weeks gestation of Diagnosis 08/23/2019 12:49:[address] [facility] Z3481 Encounter for supervision of other mary beth l , first trimester Encounter for supervision of other normal , first trimester Diagnosis 08/23/2019 12:49:[address] [facility] Surgeries/Procedures Procedure Description Date Indications Data Source(s) Introduction of Anesthetic Agent into Spinal Canal, Pe rcutaneous Approach Introduction of Anesthetic Agent into Spinal Canal, Percutaneous Approac 03/05/2020 12:00:[address] [facility] Delivery of Products of Conception, External Approach Delivery of Products of Conception, External Approach 03/05/2020 12:00:00 AM [facility] Introduction of Electrolytic and Water B alance Substance into Peripheral Vein, Percutaneous Approach Introduction of Electrolytic and Water B alance Substance into Peripheral Vein, Percutaneous Approach 03/04/2020 12:00:[address] [facility] Monitoring of Products of Conception, Ca rdiac Electrical Activity, External Approach Monitoring of Products of Conception, Ca rdiac Electrical Activity, External Approach 03/04/2020 12:00:[address] [facility] Antepartum New Patient Initial Visit 08/23/2019 12:00: 00 AM EDT [facility] ([facility]) Results ID Date Data Source [id number] 03/06/2020 07:20:[address] [facility] Name Value Range Interpretation Code Description Data Ashley rce(s) Supporting Document(s) CBC W/AUTOMATED DIFF [facility] COMPLETE BLOOD COUNT Leukocytes [#/volume] in Blood by Automated count 11.7 10^3/uL 4.2 - 11.[address] [facility] Erythrocytes [#/volume] in Blood by Automated count 4.04 10^6/uL 4. 20 - 5.[address] [facility] Hemoglobin [Mass/volume] in Blood 11.0 g/dL 12.0 - 16.[address] [facility] Hematocrit [Volume Fraction] of Blood by Automated count 33.2 % 3 7.0 - 47.[address] [facility] Erythrocyte mean corpuscular volume [Entitic volume] by Auto mated count 82.2 fL 81.0 - 101 [facility] Erythrocyte mean corpuscular hemoglobin [Entitic mass] by Automated count 27.2 pg 27.0 - 34.0 [facility] Erythrocyte mean corpuscular hemoglobin concentration [Mass/volume] by Automated count 33.1 g/dL 31.0 - 36.0 [facility] Erythrocyte distribution width [Ratio] by Automated count 14.0 % 11.5 - 14.5 [facility] Platelets [#/volume] in Blood by Automated count 174 10^3/uL 150 - [address] [facility] Platelet mean volume [Entitic volume] in Blood by Automated count 9.1 fL 7.4 - 10.4 [facility] Neutrophils/100 leukocytes in Blood by Automated count 72.2 % 37. 0 - 80.0 [facility] Lymphocytes/100 leukocytes in Blood by Manual count 17.0 % 25.0 - 40.[address] [facility] Monocytes/100 leukocytes in Blood by Automated count 9.8 % 3.0 - 8.[address] [facility] Eosinophils/100 leukocytes in Blood by Automated count 0.5 % 0.0 - 7.0 [facility] Basophils/100 leukocytes in Blood by Automated count 0.2 % 0.0 - 2.5 [facility] %IG 0.3 % 0.0 - 0.0 H [facility] Hospit al %NRBC 0.0 % 0.0 - 0.0 [facility] al Neutrophils [#/volume] in Blood by Automated count 8.43 10^3/uL 2.00 - 6.[address] [facility] Lymphocytes [#/volume] in Blood by Automated count 1.98 10^3/uL 0.60 - 3.40 [facility] Monocytes [#/volume] in Blood by Automated count 1.14 10^3/uL 0.00 - 0.[address] [facility] Eosinophils [#/volume] in Blood by Automated count 0.06 10^3/uL 0.00 - 0.70 [facility] Basophils [#/volume] in Blood by Automated count 0.02 10^3/uL 0.00 - 0.20 [facility] #IG 0.04 10^3/uL 0.00 - 0.10 [facility] H [facility]spital #NRBC 0.00 10^3/uL 0.00 - 0.00 [facility] ospital MANUAL DIFF SEE BELOW [facility] ital Segmented neutrophils/100 leukocytes in Blood by Manual count 77 % 37 - 80 [facility] %LYMPH 17 % 25 - 40 L [facility] Hospit al %MONO 6 % 3 - 8 [facility] MORPH NOT INDICATED [facility] spital ID Date Data Source [id number] 03/08/2020 03:32:[address] [facility] Name Value Range Interpretation Code Description Data Ashley rce(s) Supporting Document(s) CULTURE URINE [facility] spital _CULTURE URINE_$$[id number]$$[id number]$$[id number]$$[id number]$$[id number]$$[id number]$$[id number]$$521933$$[id number]$$ 189313$$823074$$859534$$448894$$836821$$577799$$997014$$608699$$330121$$873010$$ 503388$$716640$$800887$$722401$$347198$$505315$$[id number]$$[id number] -- Continued on next page --Patient: MIGUEL GODDARD N Order: [id number] Page 2Culture: CULTURE URINE Status: Final ==== -- Continued on next page --Patient: MIGUEL GODDARD N Order: [id number] Page 2Culture: CULTURE URINE Status: Prelim =====$$[id number]$$[id number] DATE/TIME: 03/08/2020 15:06Culture: CULTURE URINE Status: FinalUrine Culture,Comprehensive: [id number] urogenital flora10,000-25,000 colony forming units per mL Previous result entered on 03/07/2020 03:30 ET Specimen has been received and testing has been initiated.P1 Test performed by: [facility] Neal ROWLAND #: [id number] [address] [place] [address] [id number] [facility] [address]Ghpsmyx Director : Favian Pfeiffer MD NPI #:Coat Repair Inspector : 03/07/20.0620.XMT.SENT REF 03/08/20.1532.XMT.SENT REF 03/08/20.1532.DW .to PARUL via fax ID Date Data Source [id number] 03/07/2020 06:11:[address] [facility] Name Value Range Interpretation Code Description Data Ashley rce(s) Supporting Document(s) SOURCE: Clean Catch [facility]osp ital Chlamydia trachomatis rRNA [Presence] in Unspecified specimen by Probe and target amplification method Negative Negative [facility] Neisseria gonorrhoeae rRNA [Presence] in Unspecified specimen by Probe and target amplification method Negative Negative [facility] ID Date Data Source [id number] 03/05/2020 01:13:[address] [facility] Name Value Range Interpretation Code Description Data Ashley rce(s) Supporting Document(s) ABO group [Type] in Blood A [facility] Rh [Type] in Blood POSITIVE [facility] AB SCREEN NEGATIVE NORMAL: NEGATIVE [facility] { ABO/RH REENTER A POSITIVE{ AB SCREEN RE-ENTER NEGATIVE ID Date Data Source [id number] 03/05/2020 12:28:[address] [facility] Name Value Range Interpretation Code Description Data Ashley rce(s) Supporting Document(s) CBC W/AUTOMATED DIFF [facility] COMPLETE BLOOD COUNT Leukocytes [#/volume] in Blood by Automated count 11.8 10^3/uL 4.2 - 11.[address] [facility] Erythrocytes [#/volume] in Blood by Automated count 4.77 10^6/uL 4. 20 - 5.40 [facility] Hemoglobin [Mass/volume] in Blood 13.0 g/dL 12.0 - 16.0 [facility] Hematocrit [Volume Fraction] of Blood by Automated count 38.3 % 3 7.0 - 47.0 [facility] Erythrocyte mean corpuscular volume [Entitic volume] by Auto mated count 80.3 fL 81.0 - [address] [facility] Erythrocyte mean corpuscular hemoglobin [Entitic mass] by Automated count 27.3 pg 27.0 - 34.0 [facility] Erythrocyte mean corpuscular hemoglobin concentration [Mass/volume] by Automated count 33.9 g/dL 31.0 - 36.0 [facility] Erythrocyte distribution width [Ratio] by Automated count 13.5 % 11.5 - 14.5 [facility] Platelets [#/volume] in Blood by Automated count 227 10^3/uL 150 - [address] [facility] Platelet mean volume [Entitic volume] in Blood by Automated count 9.9 fL 7.4 - 10.4 [facility] Neutrophils/100 leukocytes in Blood by Automated count 82.9 % 37. 0 - 80.[address] [facility] Lymphocytes/100 leukocytes in Blood by Manual count 10.7 % 25.0 - 40.[address] [facility] Monocytes/100 leukocytes in Blood by Automated count 5.7 % 3.0 - 8.0 [facility] Eosinophils/100 leukocytes in Blood by Automated count 0.1 % 0.0 - 7.0 [facility] Basophils/100 leukocytes in Blood by Automated count 0.2 % 0.0 - 2.5 [facility] %IG 0.4 % 0.0 - 0.0 [facility]NRBC 0.0 % 0.0 - 0.0 [facility] al Neutrophils [#/volume] in Blood by Automated count 9.77 10^3/uL 2.00 - 6.[address] [facility] Lymphocytes [#/volume] in Blood by Automated count 1.26 10^3/uL 0.60 - 3.40 [facility] Monocytes [#/volume] in Blood by Automated count 0.67 10^3/uL 0.00 - 0.90 [facility] Eosinophils [#/volume] in Blood by Automated count 0.01 10^3/uL 0.00 - 0.70 [facility] Basophils [#/volume] in Blood by Automated count 0.02 10^3/uL 0.00 - 0.20 [facility] #IG 0.05 10^3/uL 0.00 - 0.10 [facility] ospital #NRBC 0.00 10^3/uL 0.00 - 0.00 [facility] H ospital MANUAL DIFF NOT INDICATED [facility] RBC MORPH NOT INDICATED [facility] Ho spital ID Date Data Source [id number] 03/05/2020 12:27:[address] [facility] Name Value Range Interpretation Code Description Data Ashley rce(s) Supporting Document(s) BASIC METABOLIC PANEL [facility] BASIC METABOLIC PANEL Sodium [Moles/volume] in Serum or Plasma 136 mEq/L 134 - 153 [facility] Potassium [Moles/volume] in Serum or Plasma 4.1 mEq/L 3.6 - 5.0 [facility] Chloride [Moles/volume] in Serum or Plasma 101 mEq/L 98 - 107 [facility] Carbon dioxide, total [Moles/volume] in Serum or Plasma 18 MEQ/L 22 - [address] [facility] Glucose [Mass/volume] in Serum or Plasma 97 MG/DL 65 - 110 [facility] BUN 10 MG/DL 7 - 21 [facility] al Creatinine [Mass/volume] in Serum or Plasma 0.5 MG/DL 0.7 - 1.[address] [facility] BUN/CREAT 20 8 - 27 [facility] Calcium [Mass/volume] in Serum or Plasma 9.5 MG/DL 8.4 - 10.2 [facility] Anion gap 3 in Serum or Plasma 17.0 mmol/L 8.0 - 16.[address] [facility] AGE 19 yrs [facility] al AFR AMER GFR >60 mL/min [facility] Ho spital NON-AA GFR >60 mL/min [facility] ital Male GFR Inter prentation 20-49 yrs [...] >32 mL/min Normal ID Date Data Source [id number] 03/05/2020 12:25:[address] [facility] Name Value Range Interpretation Code Description Data Ashley rce(s) Supporting Document(s) UR[facility]YSIS [facility] COL[facility] Dk Yellow NORMAL: Yellow [facility] CLARITY Clear NORMAL: Clear [facility] Ho spital Specific gravity of Urine by Test strip 1.010 1.001 - 1.030 [facility] pH 7 5 - 9 [facility] al Glucose [Mass/volume] in Urine by Test strip Negative NORMAL: Negat [facility] Bilirubin.total [Presence] in Urine by Test strip Negative NORMAL: Negative [facility] Ketones [Presence] in Urine by Test strip 150 NORMAL: Negative [facility] Protein [Mass/volume] in Urine by Test strip 15 NORMAL: Negat [facility] Nitrite [Presence] in Urine by Test strip Negative NORMAL: Negative [facility] BLOOD 250 NORMAL: Negative [facility] Leukocyte esterase [Presence] in Urine by Test strip 100 MARY BETH L: Negative [facility] Urobilinogen [Mass/volume] in Urine by Test strip NOR less shireen n 1.0 mg/dL [facility] MICROSCOPIC See Below [facility] ital WBC 3 - 5 NORMAL: NONE SEEN [facility] Erythrocytes [#/volume] in Urine by Test strip 0 - 1 NORMAL: NON E SEEN [facility] EPITHELIAL FEW NORMAL: NONE SEEN [facility] Bacteria [Presence] in Urine sediment by Light microscopy Tr catrachita NORMAL: NONE SEEN [facility] Mucus [Presence] in Urine sediment by Light microscopy 1+ NOR MAL: NONE SEEN [facility] ID Date Data Source [id number] 03/05/2020 12:25:[address] [facility] Name Value Range Interpretation Code Description Data Ashley rce(s) Supporting Document(s) Prothrombin time (PT) 13.9 SECONDS 11.0 - 15.5 [facility] INR in Platelet poor plasma by Coagulation assay 1.06 0.93 - 1. 23 [facility] aPTT in Blood by Coagulation assay 29.8 SECONDS 24.8 - 36.7 [facility] \\BLDo\\INR INTERPRETATION\\BLDx\\ Therapeutic range for Coumadin and related oral anticoagulants. - International Normalized Ratio (INR): 2.0 - 3.0 for Venous Thrombosis, Pulmonary Embolus, Tissue heart valves, Acute NC Atrial Fibrillation, Valvular heart disease and recurrent Systemic Embolism. - International Normalized Ratio (INR): 2.5 - 3.5 for Mechanical Prosthetic valve. ID Date Data Source [id number] 11/21/2019 12:00:00 AM EDT [facility] Imaging Mathew Thomson Patient Name: RUPESH RIVERA[facility] Date of : [address] [address] Date of Exam: 11/21/2019PH#: Fax: [phone] EXAM: [...] and upper and lower extremities.Accredited by the [employer] in Obstetrical Ultrasound.HUI Miramontes/Letitia bradford for referring RUPESH RIVERA to our office. Electronically Signed - ARIEL STEVENSON DO 11/21/19 16:35 Name Value Range Interpretation Code Description Data Ashley rce(s) Supporting Document(s) ID Date Data Source [id number] 09/24/2019 10:34:[address] [facility] Name Value Range Interpretation Code Description Data Ashley rce(s) Supporting Document(s) CULTURE URINE [facility] spital _CULTURE URINE_$$[id number]$$[id number]$$[id number]$$349921$$580326$$020138$$920879$$883253$$073008$$ 159621$$287626$$566420$$597042$$815104$$840743$$290965$$533822$$011855$$009063$$ 690600$$369011$$720366$$161031$$958486$$729941$$049404$$[id number] -- Continued on next page --Patient: MIGUEL GODDARD N Order: [id number] Page 2Culture: CULTURE URINE Status: Final ==== -- Continued on next page --Patient: MIGUEL GODDARD N Order: [id number] Page 2Culture: CULTURE URINE Status: Prelim =====$$[id number]$$[id number] DATE/TIME: 09/24/2019 10:05Culture: CULTURE URINE Status: FinalUrine Culture,Comprehensive: P1No growth in 36 - 48 hours. Previous result entered on 09/23/2019 09:36 ET No growth after 18-24 hours.P1 Test performed by: [facility] #: [id number] [address] [id number] [facility] [address]Medical Director : Favian Pfeiffer MD NPI #:Lab Di liv : 09/23/19.1132.XMT.SENT REF 09/24/19.1034.XMT.SENT REF ID Date Data Source [id number] 09/22/2019 06:11:[address] [facility] Name Value Range Interpretation Code Description Data Ashley rce(s) Supporting Document(s) HIV 1+2 Ab+HIV1 p24 Ag [Presence] in Serum or Plasma b y Immunoassay Non Reactive Non Reactive [facility] ID Date Data Source [id number] 09/20/2019 05:32:[address] [facility] Name Value Range Interpretation Code Description Data Ashley rce(s) Supporting Document(s) ABO group [Type] in Blood A [facility] Rh [Type] in Blood POSITIVE [facility] AB SCREEN NEGATIVE NORMAL: NEGATIVE [facility] { ABO/RH REENTER A POSITIVE{ AB SCREEN RE-ENTER NEGATIVE ID Date Data Source [id number] 09/20/2019 04:38:00 PM EDT [facility] Value Range Interpretation Code Description Data Ashley rce(s) Supporting Document(s) Treponema pallidum Ab [Presence] in Serum NON-REACTIVE NORMAL:NON DAVID CTIVE [facility] ID Date Data Source [id number] 09/20/2019 04:38:00 PM EDT [facility] Value Range Interpretation Code Description Data Ashley rce(s) Supporting Document(s) Rubella virus IgG Ab [Units/volume] in Serum 50.750 IU/ml [facility] REACTI VE \\BLDo\\Rubella Immunity Interpretation\\BLDx\\ Non-reactive: <10 IU/mL Reactive: greater than or equal to 10 IU/mL A reactive result is presumptive evidence of immunity to Rubella, except when acute infection is suspected. ID Date Data Source [id number] 09/20/2019 04:37:[address] [facility] Name Value Range Interpretation Code Description Data Ashley rce(s) Supporting Document(s) Hepatitis B virus surface Ab [Units/volume] in Serum o r Plasma by Immunoassay NONREACTIVE NORMAL:NON REACTIVE [facility] ID Date Data Source [id number] 09/20/2019 04:10:[address] [facility] Name Value Range Interpretation Code Description Data Ashley e(s) Supporting Document(s) CBC W/AUTOMATED DIFF [facility] COMPLETE BLOOD COUNT Leukocytes [#/volume] in Blood by Automated count 8.6 10^3/uL 4.2 - [address] [facility] Erythrocytes [#/volume] in Blood by Automated count 4.23 10^6/uL 4. 20 - 5.40 [facility] Hemoglobin [Mass/volume] in Blood 11.7 g/dL 12.0 - 16.[address] [facility] Hematocrit [Volume Fraction] of Blood by Automated count 34.5 % 3 7.0 - 47.[address] [facility] Erythrocyte mean corpuscular volume [Entitic volume] by Auto mated count 81.6 fL 81.0 - 101 [facility] Erythrocyte mean corpuscular hemoglobin [Entitic mass] by Automated count 27.7 pg 27.0 - 34.0 [facility] Erythrocyte mean corpuscular hemoglobin concentration [Mass/volume] by Automated count 33.9 g/dL 31.0 - 36.0 [facility] Erythrocyte distribution width [Ratio] by Automated count 12.9 % 11.5 - 14.5 [facility] Platelets [#/volume] in Blood by Automated count 212 10^3/uL 150 - [address] [facility] Platelet mean volume [Entitic volume] in Blood by Automated count 9.8 fL 7.4 - 10.4 [facility] Neutrophils/100 leukocytes in Blood by Automated count 74.6 % 37. 0 - 80.0 [facility] Lymphocytes/100 leukocytes in Blood by Manual count 17.7 % 25.0 - 40.[address] [facility] Monocytes/100 leukocytes in Blood by Automated count 5.6 % 3.0 - 8.0 [facility] Eosinophils/100 leukocytes in Blood by Automated count 1.4 % 0.0 - 7.0 [facility] Basophils/100 leukocytes in Blood by Automated count 0.2 % 0.0 - 2.5 [facility] %IG 0.5 % 0.0 - 0.0 [facility] %NRBC 0.0 % 0.0 - 0.0 [facility] al Neutrophils [#/volume] in Blood by Automated count 6.38 10^3/uL 2.00 - 6.90 [facility] Lymphocytes [#/volume] in Blood by Automated count 1.51 10^3/uL 0.60 - 3.40 [facility] Monocytes [#/volume] in Blood by Automated count 0.48 10^3/uL 0.00 - 0.90 [facility] Eosinophils [#/volume] in Blood by Automated count 0.12 10^3/uL 0.00 - 0.70 [facility] Basophils [#/volume] in Blood by Automated count 0.02 10^3/uL 0.00 - 0.20 [facility] #IG 0.04 10^3/uL 0.00 - 0.10 [facility] ospital #NRBC 0.00 10^3/uL 0.00 - 0.00 [facility] H ospital MANUAL DIFF NOT INDICATED [facility] RBC MORPH NOT INDICATED [facility] Ho spital ID Date Data Source [id number] 09/20/2019 04:10:[address] [facility] Name Value Range Interpretation Code Description Data Ashley rce(s) Supporting Document(s) URINALYSIS [facility] Hospi rio URINALYSIS SOURCE R [facility] COLOR yellow NORMAL: Yellow [facility] H ospital CLARITY clear NORMAL: Clear [facility] Ho spital Specific gravity of Urine by Test strip 1.015 1.001 - 1.030 [facility] pH 6.5 5 - 9 [facility] al Glucose [Mass/volume] in Urine by Test strip NORM NORMAL: Negat [facility] Bilirubin.total [Presence] in Urine by Test strip NEG NORMAL: Negative [facility] Ketones [Presence] in Urine by Test strip 5 NORMAL: Negative A [facility] Protein [Mass/volume] in Urine by Test strip 15 NORMAL: Negat [facility] Nitrite [Presence] in Urine by Test strip NEG NORMAL: Negative [facility] BLOOD NEG NORMAL: Negative [facility] Leukocyte esterase [Presence] in Urine by Test strip 25 MARY BETH L: Negative [facility] Urobilinogen [Mass/volume] in Urine by Test strip 1 less shireen n 1.0 mg/dL [facility] MICROSCOPIC See Below [facility] ital WBC 1 - 3 NORMAL: NONE SEEN [facility] EPITHELIAL MANY NORMAL: NONE SEEN A [facility] Bacteria [Presence] in Urine sediment by Light microscopy 2+ MOD NORMAL: NONE SEEN A [facility] ID Date Data Source [id number] 08/23/2019 03:03:00 PM EDT [facility] ([facility]) Name Value Range Interpretation Code Description Data Ashley rce(s) Supporting Document(s) Source: Random Void [facility] ([facility]) {SOURCE: Random Void~OFF URINE Chlamydia trachomatis,Shanon COMMENT MED[facility] NT ([facility]) {SOURCE: Random Void~OFF URINE Neisseria gonorrhoeae,Shanon Negative [facility] ([facility]) {SOURCE: Random Void~OFF URINE ID Date Data Source [id number] 08/23/2019 02:19:00 PM EDT [facility] ([facility]) Name Value Range Interpretation Code Description Data Ashley rce(s) Supporting Document(s) Laboratory test finding (navigational concept) <pending> [facility] ([facility]) ID Date Data Source [id number] 08/26/2019 12:28:[address] [facility] Name Value Range Interpretation Code Description Data Ashley rce(s) Supporting Document(s) SOURCE: Random Void [facility] Hosp ital Chlamydia trachomatis rRNA [Presence] in Unspecified specimen by Probe and target amplification method COMMENT Negative [facility] Result being verified. Final report to romana geller. Neisseria gonorrhoeae rRNA [Presence] in Unspecified specimen by Probe and target amplification method Negative Negative [facility] ID Date Data Source [id number] 08/23/2019 02:12:00 PM EDT [facility] ([facility]) Name Value Range Interpretation Code Description Data Ashley rce(s) Supporting Document(s) Z#Other Observations <pending> [facility] ([facility]) ID Date Data Source [id number] 08/23/2019 02:06:00 PM EDT [facility] ([facility]) Name Value Range Interpretation Code Description Data Ashley rce(s) Supporting Document(s) Inhouse Urine Test positive [facility] ([facility]) ID Date Data Source [id number] 07/07/2019 10:12:03 AM [facility] Menstrual HistoryLast Menstrual Period ( LMP): [...] AMAssessment & Plan Problems:Assessed:Urine test positive (ICD-V22.2) (NRZ66-M02.01) Assessment: Pt requested urine HCG in office and the blood work too. Both done. If quant is positive, will refer to [facility]. Instructions: Reviewed with patient [...] Plan developed in collaboration with patient and/or familyOrders:[id number]-Lot Vst-Est Level I [CPT-92327] 38255 - Venipuncture [CPT- 76011] URINE TEST [CPT-49697] Name Value Range Interpretation Code Description Data Ashley rce(s) Supporting Document(s) ID Date Data Source [id number] 07/07/2019 10:12:[address] [facility] Name Value Range Interpretation Code Description Data Ashley rce(s) Supporting Document(s) PREG TST URN positive [facility] ID Date Data Source [id number] 07/07/2019 10:05:[address] [facility] Name Value Range Interpretation Code Description Data Ashley rce(s) Supporting Document(s) VIT D25 TOT 13.1 ng/mL 30.0-100.0 L [facility] BG FASTING 83 mg/dL 70-100 N [facility] T4, FREE 1.19 ng/dL 0.78-1.33 N [facility] TSH 2.470 microintl units/mL 0.463-3.98 [facility] ID Date Data Source [id number] 07/07/2019 10:05:00 AM [facility] Name Value Range Interpretation Code Description Data Ashley rce(s) Supporting Document(s) HCT 39.6 % 36.0-47.[address] [facility] HGB 12.5 g/dL 12.0-15.[address] [facility] MCH 31.6 G/DL pg 32.0-36.5 L [facility] MCHC 26.6 PG % 27.0-33.[address] [facility] PLATELETS 258 10 10*3/mm3 150-[address] [facility] RBC 4.70 10 10*6/mm3 4.00-5.40 [facility] RDW 13.2 % 11.5-14.5 [facility] WBC TOTAL 7.3 4.0-10.[address] [facility] ID Date Data Source [id number] 07/07/2019 10:05:00 AM [facility] Name Value Range Interpretation Code Description Data Ashley rce(s) Supporting Document(s) HGBA1C 4.9 % N [facility] ID Date Data Source [id number] 06/03/2019 03:32:12 PM [facility] Measurements & CalculationsHeight: 63 inches (5 [...] or Preferred Language: EnglishFamily and Home Address: [address] [place] [address] [place] [address] What is your housing situation today? I have housing Are you worried about losing your housing? NoMoney and Resources What is the highest level of school that you have finished? high school graduate Employed? No Are you seeking work? Yes Insurance: [facility] Essential PlanIn the past year, have you or any family members you live with been unable to get any of the following when it was really needed? Denies Insecurity: food, utilities, clothing, child care sitter, phone, legal services, otherIn the past year, [...] 2 nights in a row in a senior living, correction, intermediate center or juvenile correctional facility? No Has [...] you a refugee? No (Country of origin: [facility]) Do you feel physically and emotionally [...] Thyroid (mother)Cancer - Lung (Paternal Grandmother)Myocardial infarction ([place]) (Maternal Grandfather)Hypertension (Paternal Grandfather)COPD (Paternal Grandfather)Social/Personal History: [...] assoc with SI/ HI/ deluiions.Needs referral to BLEACHER OPERATOR for her cysts on her ovariesPt states that she has recently moved [place] here [place] [facility] and forgot her medications when she moved. She was on Xanax - would like something else to take rather than this. Will begin on Lexapro 10mg.Denies any abuse with her SO, no drinking/drug abuse. Does not currently have a counselor, will refer for in house today. Will send referral for [facility] to [facility]. Will send chantix for patient as she [...] during this visit, including review of any obck-bmu-wikoeht medications, herbal therapies, and/or supplements.Allergy ReviewAllergy List [...] FairAssessment & Plan Problems:Added: Anxiety disorder, unspecified (YKD22-W47.9)Attention-deficit hyperactivity disorder, unspecified type (PDR07-B07.9)Chronic disease of tonsils AND/OR adenoids (ICD- 474.9) (YXO18-V70.9) Assessment: Instructions: Counseled patient on all diagnoses/ treatments. Return to clinic/ ER for any worsening symptoms or concernsENT consult sentUnspecified ovarian cyst, unspecified side (ICD-620.2) (SVV80-L37.209) Assessment: Instructions: Counseled patient on all diagnoses/ treatments. Return to clinic/ ER for any worsening symptoms or concernsGYN consult sentUnspecified asthma with status asthmaticus (ICD10- J45.902) Assessment: Instructions: Counseled patient on all diagnoses/ treatments. Return to clinic/ ER for any worsening symptoms or concernsMedication issuedNicotine dependence (ICD-305.1) (RRH60-T77.200) Assessment: Instructions: Counseled on tobacco cessation for 10 min.Medication issuedVitamin D deficiency, unspecified (ZUB15-F40.9) Assessment: Instructions: Counseled patient on all diagnoses/ treatments. Return to clinic/ ER for any worsening symptoms or concernsMedication issuedPain in unspecified joint (RLB81-W14.50) Assessment: Instructions: Counseled patient on all diagnoses/ treatments. Return to clinic/ ER for any worsening symptoms or concernslabs orderedEncounter for screening for other metabolic disorders (AEL85-X06.228) Assessment: Instructions: Counseled patient on all diagnoses/ [...] MCG (1000 UT) ORAL CAPSULEVITAMIN D (ERGOCALCIFEROL) 94922 UNIT ORAL CAPSULENICOTROL 10 MG INHALATION INHALERVENTOLIN [...] HFA 108 (90 BASE) MCG/ACT INHALATION AEROSOL GLUYSUZW-9-5 puffs q 4-6 hours prn wheezing Qty: 1[Inhalation] Refills: 5 Method: ElectronicNICOTROL 10 MG INHALATION INHALER-use 1 vial every 4-6 hours Qty: 120[Inhaler] Refills: 5 Method: ElectronicVITAMIN D (ERGOCALCIFEROL) 63834 UNIT ORAL CAPSULE-1 po q wk for 12 wks Qty: 12[Capsule] Refills: 0 Method: ElectronicVITAMIN D (CHOLECAL CIFEROL) 25 MCG (1000 UT) ORAL CAPSULE-1 po daily beginning in 3 mos Qty: 30[Capsule] Refills: 5 Method: ElectronicAllergies:No Known Allergies (updated 06/03/2019) Orders:Psychology Consult [CPT-04803] Telepsychiatry Consult [CPT-70949] COMP METABOLIC PANEL [CPT-59112] CBC W/DIFF [CPT-91309] HgBA1c [CPT-81101] LIPID PANEL [CPT-47979] TSH [CPT-64797] T-4 free [CPT-77278] Vitamin D 250H Unspecified [CPT-07429] URINALYSIS [CPT-75885] Lyme Antibody [CPT-84292] Head Of Transport Logistics [CPT-65301] ENT Consult [CPT-09813] Adult - Ofc Vst, NEW, Level IV [CPT-92398] Follow-Up Return to clinic: in 30 days for f/uAdditional Follow-Up: Counseled patient on all diagnoses/ treatments. Return to clinic/ ER for any worsening symptoms or concernsClinical Visit Summary Declined Name Value Range Interpretation Code Description Data Ashley rce(s) Supporting Document(s) Procedure Social History Code Duration Value Status Description Data Source(s ) 03/05/2020 12:00:00 AM EDT completed [facility] ([facility]) Vital Signs ID Date Data Source UNK Name Value Range Interpretation Code Description Data Source(s) Body surface area 1.91 m2 1.91 m2 [facility] ([facility]) Body mass index (BMI) [Ratio] 32.3 kg/m2 32.3 k g/m2 [facility] ([facility]) Body height 64 [in_i] 64 [in_i] [facility] ([facility]) 5'4" Body weight 85.277 kg 85.277 kg [facility] ([facility]) Body weight 188.00 [lb_av] 188.00 [lb_av] MEDEN T ([facility]) Body temperature 98.6 [degF] 98.6 [degF] [facility] ([facility]) Heart rate 70 /min 70 /min [facility] ([facility]) Diastolic blood pressure 65 mm[Hg] 65 mm[Hg] [facility] ([facility]) Systolic blood pressure 102 mm[Hg] 102 mm[Hg] [facility] Body surface area 1.92 m2 1.92 m2 [facility] ([facility]) Body mass index (BMI) [Ratio] 32.8 kg/m2 32.8 k g/m2 [facility] ([facility]) Body height 64 [in_i] 64 [in_i] [facility] ([facility]) 5'4" Body weight 86.638 kg 86.638 kg [facility] ([facility]) Body weight 191.00 [lb_av] 191.00 [lb_av] MEDEN T ([facility]) Heart rate 80 /min 80 /min [facility] ([facility]) Diastolic blood pressure 60 mm[Hg] 60 mm[Hg] [facility] ([facility]) Systolic blood pressure 90 mm[Hg] 90 mm[Hg] M EDENT ([facility]) Body mass index (BMI) [Ratio] 31.0 kg/m2 31.0 k g/m2 [facility] ([facility], [facility]) Body height 63 [in_i] 63 [in_i] [facility] ([facility], [facility]) 5'3" Body weight 175.00 [lb_av] 175.00 [lb_av] MED[facility] T ([facility], [facility]) Body temperature 99.4 [degF] 99.4 [degF] [facility] ([facility], [facility]) Oxygen saturation in Arterial blood by Pulse oximetry 99 % 99 % [facility] ([facility], [facility]) Respiratory rate 16 /min 16 /min [facility] ( [facility], [facility]) Heart rate 80 /min 80 /min [facility] ([facility], [facility]) Diastolic blood pressure 80 mm[Hg] 80 mm[Hg] [facility] ([facility], [facility]) Systolic blood pressure 113 mm[Hg] 113 mm[Hg] M [facility] ([facility], [facility]) ID Date Data Source [id number] 03/09/2020 02:07:[address] [facility] Name Value Range Interpretation Code Description Data Source(s) WEIGHT RECORDED 208.00 pounds 208.00 pounds [facility] Height [address] [facility]
== END 2020-07-20 23:00 | disposition home or self-care (01) ==
LOC: M ED 21:53
DX: L73.9 Follicular disorder, unspecified (principal)

== ENCOUNTER → 2022-02-14 | Outpatient (CLI) | payer OTHER ==
[~2022-02-14] MED LIST changes: +CEPH500T PO
[2022-02-14 14:49] LABS: HEMATOCRIT 34.2 % (36.0-47.0); HEMOGLOBIN 11.5 g/dl (12.0-15.5); MEAN CORPUSCULAR HEMOGLOBIN 27.3 pg (27.0-33.0); MEAN CORPUSCULAR HGB CONC 33.6 g/dl (32.0-36.5); MEAN CORPUSCULAR VOLUME 81.2 fl (80.0-96.0); PLATELET COUNT, AUTOMATED 259 10^3/uL (150-450); RED BLOOD COUNT 4.21 10^6/uL (4.00-5.40); WHITE BLOOD COUNT 9.4 10^3/uL (4.0-10.0)
[2022-02-14 16:16] LABS: HEPATITIS B SURFACE ANTIGEN NEGATIVE (NEGATIVE)
[2022-02-14 16:43] LABS: HEPATITIS C VIRUS ABY INDEX 0.1 INDEX (<0.8)
== END ==
LOC: M PLALAB 09:22
PROVIDERS: ATTEND Obstetrics & Gynecology
DX: Z34.81 Encounter for supervision of other normal pregnancy, first trimester (principal); Z3A.00 Weeks of gestation of pregnancy not specified

== ENCOUNTER → 2022-02-14 | Outpatient (CLI) | payer MEDICAID, OTHER | LOC: M WHC 07:45 | PROVIDERS: ATTEND Obstetrics & Gynecology | DX: Z36.3 Encounter for antenatal screening for malformations (principal); Z3A.13 13 weeks gestation of pregnancy ==

== ENCOUNTER → 2022-02-25 | Outpatient (CLI) | payer OTHER ==
[2022-02-25 16:06] LABS: HEMATOCRIT 32.5 % (36.0-47.0); HEMOGLOBIN 10.8 g/dl (12.0-15.5); MEAN CORPUSCULAR HEMOGLOBIN 27.2 pg (27.0-33.0); MEAN CORPUSCULAR HGB CONC 33.2 g/dl (32.0-36.5); MEAN CORPUSCULAR VOLUME 81.9 fl (80.0-96.0); PLATELET COUNT, AUTOMATED 202 10^3/uL (150-450); RED BLOOD COUNT 3.97 10^6/uL (4.00-5.40); WHITE BLOOD COUNT 8.5 10^3/uL (4.0-10.0)
[2022-02-25 17:14] LABS: GC DNA AMPLIFICATION NEGATIVE (NEGATIVE)
[2022-02-25 17:42] LABS: HEPATITIS B SURFACE ANTIGEN NEGATIVE (NEGATIVE); HEPATITIS C VIRUS ABY INDEX < 0.0 INDEX (<0.8); HIV 1&2 SCREEN CENTAUR NEGATIVE (NEGATIVE)
== END ==
LOC: M PLALAB 12:55
PROVIDERS: ATTEND Obstetrics & Gynecology
DX: Z34.91 Encounter for supervision of normal pregnancy, unspecified, first trimester (principal)

== ENCOUNTER 2022-02-28 21:41 | Emergency (ER) | payer OTHER ==
[~2022-02-28] VITALS: Ht 162.6 cm; Wt 97.1 kg
[2022-03-01] MEDS ORDERED: ONDA4TAB6 PO (07:03)
[2022-03-01 07:14] VITALS: BP 119/58
[2022-03-01] MEDS ORDERED: ACETAMINOPHEN 325 MG TAB PO ONE (07:20)
[2022-03-01] MEDS ORDERED: ONDANSETRON 4MG ORAL DISINTEGRATING TAB PO ONE (07:20)
== END 2022-03-01 07:40 | disposition home or self-care (01) ==
LOC: M ED 21:41
DX: S46.811A Strain of other muscles, fascia and tendons at shoulder and upper arm level, right arm, initial encounter (principal); Y92.9 Unspecified place or not applicable; Y93.9 Activity, unspecified; Y99.9 Unspecified external cause status; Z79.899 Other long term (current) drug therapy

== ENCOUNTER → 2022-04-10 | Outpatient (CLI) | payer OTHER ==
[~2022-04-10] MED LIST changes: +ONDA4TAB6 PO
== END ==
LOC: M WHC 14:00
PROVIDERS: ATTEND Obstetrics & Gynecology
DX: Z34.92 Encounter for supervision of normal pregnancy, unspecified, second trimester (principal); Z3A.20 20 weeks gestation of pregnancy

== ENCOUNTER → 2022-05-28 | Outpatient (CLI) | payer OTHER ==
[2022-05-28 13:44] LABS: HEMOGLOBIN 10.6 g/dl (12.0-15.5); MEAN CORPUSCULAR HEMOGLOBIN 26.7 pg (27.0-33.0); MEAN CORPUSCULAR HGB CONC 32.1 g/dl (32.0-36.5); MEAN CORPUSCULAR VOLUME 83.1 fl (80.0-96.0); PLATELET COUNT, AUTOMATED 230 10^3/uL (150-450); RED BLOOD COUNT 3.97 10^6/uL (4.00-5.40); WHITE BLOOD COUNT 7.5 10^3/uL (4.0-10.0)
== END ==
LOC: M PLALAB 09:40
PROVIDERS: ATTEND Advanced Practice Midwife
DX: Z34.92 Encounter for supervision of normal pregnancy, unspecified, second trimester (principal)

== ENCOUNTER → 2022-05-28 | Outpatient (CLI) | payer OTHER | LOC: M WHC 08:36 | PROVIDERS: ATTEND Advanced Practice Midwife | DX: Z34.92 Encounter for supervision of normal pregnancy, unspecified, second trimester (principal); Z3A.28 28 weeks gestation of pregnancy ==

== ENCOUNTER → 2022-07-24 | Outpatient (REF) | payer OTHER | LOC: M SFHCWAGY 16:50 | PROVIDERS: ATTEND Advanced Practice Midwife | DX: Z34.83 Encounter for supervision of other normal pregnancy, third trimester (principal) ==

== ENCOUNTER → 2022-08-19 | Outpatient (CLI) | payer OTHER | LOC: M WHC 13:46 | PROVIDERS: ATTEND Advanced Practice Midwife | DX: Z34.83 Encounter for supervision of other normal pregnancy, third trimester (principal) ==

== ENCOUNTER 2022-08-20 21:26 | Outpatient (CLI) | payer OTHER ==
[~2022-08-20] VITALS: Ht 162.6 cm; Wt 106.3 kg
[2022-08-20 21:54] VITALS: BP 139/64
[2022-08-20 21:55] VITALS: BP 123/59
== END 2022-08-20 22:34 | disposition home or self-care (01) ==
LOC: M LDO 21:26
PROVIDERS: ATTEND Advanced Practice Midwife
DX: O26.893 Other specified pregnancy related conditions, third trimester (principal); R25.2 Cramp and spasm; Z3A.39 39 weeks gestation of pregnancy
CPT/HCPCS: 59025; G0463

== ENCOUNTER 2022-08-25 05:31 | Inpatient (IN) | payer OTHER ==
[2022-08-25] VITALS (41 sets, daily range): BP systolic 89–153; BP diastolic 50–83
[~2022-08-25] VITALS: Ht 162.6 cm; Wt 107.8 kg
[2022-08-25 06:49] LABS: HEMATOCRIT 33.9 % (36.0-47.0); MEAN CORPUSCULAR HEMOGLOBIN 26.4 pg (27.0-33.0); MEAN CORPUSCULAR HGB CONC 32.4 g/dl (32.0-36.5); MEAN CORPUSCULAR VOLUME 81.3 fl (80.0-96.0); PLATELET COUNT, AUTOMATED 167 10^3/uL (150-450); RED BLOOD COUNT 4.17 10^6/uL (4.00-5.40); WHITE BLOOD COUNT 8.5 10^3/uL (4.0-10.0)
[2022-08-25] MEDS ORDERED: LACTATED RINGER'S 1000 ML IV PRN (07:05)
[2022-08-25] MEDS ORDERED: miSOPROStol 50MCG 1/2 TABLET PO ONE (07:05)
[2022-08-25] MEDS ORDERED: METHYLERGONOVINE MALEATE 0.2MG/ML 1ML VIAL IM PRN (07:05)
[2022-08-25] MEDS ORDERED: OXYTOCIN DRIP 30 UNITS in IV 1 EA IV PRN ×4 (07:05)
[2022-08-25] MEDS ORDERED: CARBOPROST TROMETHAMINE 250 MCG/ML AMP IM PRN (07:05)
[2022-08-25] MEDS ORDERED: TRANEXAMIC ACID INJection 1,000 MG in NS 100 ML IV PRN (07:05)
[2022-08-25] MEDS ORDERED: TUMS500C PO (10:57)
[2022-08-25] MEDS ORDERED: HOME MED LIST COMPLETE! XX SCH (11:00)
[2022-08-25] MEDS ORDERED: NALOXONE INJ 0.4MG/1ML VIAL IV PRN (13:00)
[2022-08-25] MEDS ORDERED: FENTANYL/ROPIVACAINE/NACL BAG 100 ML EPIDURAL SCH (13:00)
[2022-08-25] MEDS ORDERED: EPIDURAL/PCA KEYS XX PRN (13:00)
[2022-08-25] MEDS ORDERED: diphenhydrAMINE 50MG/ML VIAL IV PRN (13:00)
[2022-08-25] MEDS ORDERED: LR 500 ML IV PRN (13:00)
[2022-08-25] MEDS ORDERED: ONDANSETRON 4MG 2ML VIAL IV PRN (13:00)
[2022-08-25] MEDS: LR 1,000 ML IV SCH ×2 (13:12→18:53)
[2022-08-25] MEDS ORDERED: OXYTOCIN DRIP 30 UNITS in IV 1 EA IV SCH (14:20)
[2022-08-25] MEDS: ePHEDrine SULFATE 25 MG/5 ML(5MG/ML) SYRINGE IVP PRN ×3 (18:44→18:50)
[2022-08-25] MEDS ORDERED: ANUSOL HC CREAM 30GM TOP PRN (23:45)
[2022-08-25] MEDS ORDERED: IBUPROFEN 600MG TAB PO PRN (23:45)
[2022-08-25] MEDS ORDERED: MOM 30ML SUSPENSION UDC PO PRN (23:45)
[2022-08-25] MEDS ORDERED: DOCUSATE SODIUM 100MG CAPSULE PO PRN (23:45)
[2022-08-25] MEDS ORDERED: ACETAMINOPHEN TAB 650MG DOSE (2X325MG) PO PRN (23:45)
[2022-08-25] MEDS ORDERED: RHOGAM 300MCG (1500IU) INJ IM SCH (23:45)
[2022-08-25] MEDS ORDERED: ACETAMINOPHEN 500 MG TAB PO PRN (23:45)
[2022-08-25] MEDS ORDERED: DIBUCAINE 1% OINTMENT 30GM TOP PRN (23:45)
[2022-08-26 00:14] VITALS: BP 127/60
[2022-08-26 01:05] VITALS: BP 127/67
[2022-08-26 06:00] VITALS: BP 134/73
[2022-08-26] MEDS: IBUPROFEN 800 MG TAB PO PRN ×2 (06:00→14:17)
[2022-08-26] MEDS: PRENATAL VITAMINS CHEWABLE TABLET PO SCH (08:27)
[2022-08-26 18:00] VITALS: BP 112/58
[2022-08-27 06:00] VITALS: BP 140/73
[2022-08-27] MEDS: IBUPROFEN 800 MG TAB PO PRN (06:08)
[2022-08-27] MEDS ORDERED: MEASLES,MUMPS,RUBELLA VACCINE INJ (MMR-II) SC.IMMUN ONE (09:00)
[2022-08-27] MEDS: PRENATAL VITAMINS CHEWABLE TABLET PO SCH (09:20)
== END 2022-08-27 13:35 | disposition home or self-care (01) | DRG 560 ==
LOC: M LDO 05:31 → M LDI 06:05 → M OBS 08-26 01:31
PROVIDERS: ADMIT Obstetrics & Gynecology; ATTEND Obstetrics & Gynecology
PROC: 10E0XZZ Delivery of Products of Conception, External Approach (ICD-10-PCS; principal; 2022-08-25)
PROC: 3E033VJ Introduction of Other Hormone into Peripheral Vein, Percutaneous Approach (ICD-10-PCS; 2022-08-25)
PROC: 3E0P7VZ Introduction of Hormone into Female Reproductive, Via Natural or Artificial Opening (ICD-10-PCS; 2022-08-25)
DX: O48.0 Post-term pregnancy (principal); Z37.0 Single live birth; Z3A.40 40 weeks gestation of pregnancy

== ENCOUNTER → 2022-09-17 | Outpatient (REF) | payer OTHER ==
[~2022-09-17] MED LIST changes: +TUMS500C PO
== END ==
LOC: M LAB REF 16:57
PROVIDERS: ATTEND Physician Assistant
DX: N30.01 Acute cystitis with hematuria (principal)